=== PATIENT | male | born 1995 ===

== ENCOUNTER 2021-02-10 19:47 | Inpatient (IN) | payer BC, MEDICARE, MEDICAID, SELFPAY ==
[2021-02-10 20:04] VITALS: BP 113/84; PULSE 91; RESP 16; TEMP 37.1; O2SAT 97; BMI 24.9
--- NOTE | 2021-02-10 20:47 | ED.PSYCH ---
HPI - Psych General Chief Complaint: Psychiatric Symptoms <Pao Porter NP - Last Filed: 02/11/21 01:04> Stated Complaint: crisis <Pao Porter NP - Last Filed: 02/11/21 01:04> Source: patient <Pao Porter NP - Last Filed: 02/11/21 01:04> Mode of arrival: ambulatory <Pao Porter NP - Last Filed: 02/11/21 01:04> Limitations: no limitations <Pao Porter NP - Last Filed: 02/11/21 01:04> History of Present Illness HPI Narrative: 25-year-old male presents with suicidal ideations. <Pao Porter NP - Last Filed: 02/11/21 01:04> MD complaint: suicidal ideation and feels depressed <Pao Porter NP - Last Filed: 02/11/21 01:04> Onset (ago): unknown <Pao Porter NP - Last Filed: 02/11/21 01:04> Duration: constant <Pao Porter NP - Last Filed: 02/11/21 01:04> History of same: Yes <Pao Porter NP - Last Filed: 02/11/21 01:04> Relieving factors: none <Pao Porter NP - Last Filed: 02/11/21 01:04> Context: new medication(s) <Pao Porter NP - Last Filed: 02/11/21 01:04> Associated psychiatric symptoms: depression, suicidal ideation, racing thoughts, auditory hallucinations and visual hallucinations <Pao Porter NP - Last Filed: 02/11/21 01:04> Associated symptoms: denies other symptoms <Poa Porter NP - Last Filed: 02/11/21 01:04> Treatments prior to arrival: placed on mental health hold <Pao Porter NP - Last Filed: 02/11/21 01:04> If self harm: admits thoughts of self harm <Pao Porter NP - Last Filed: 02/11/21 01:04> Related Data Allergies/Adverse Reactions: Allergies Allergy/AdvReac Type Severity Reaction Status Date / Time No Known Allergies Allergy Verified 02/10/21 20:10 <Pao Porter NP - Last Filed: 02/11/21 01:04> Review of Systems Review of Systems: Constitutional: No Fever, No Chills ENT/Mouth: No Ear Pain, No Nasal Congestion, No sore throat Eyes: No Eye Pain, No Swelling, No Redness Cardiovascular: No Chest Pain, No SOB Respiratory: No Cough, No Sputum, No Dyspnea Gastrointestinal: No Nausea, No Vomiting, No Diarrhea, No Hematochezia, No Melena Genitourinary: No Dysuria, No Urinary Frequency, No Hematuria Musculoskeletal: No Myalgias Skin: No Skin Lesions, No rash Neuro: No Weakness, No Numbness, No Paresthesias, No Dizziness, No Headache Psych: positive Anxiety, positive Depression, positive SI Heme/Lymph: No Lymphadenopathy Endocrine: No Polyuria, No Polydipsia <ENID Polk Last Filed: 02/11/21 01:04> Yes all other systems are reviewed and are negative <Pao Porter NP - Last Filed: 02/11/21 01:04> [facility] Past Medical History Attestation statement: The following information was validated with the patient. <Pao Porter NP - Last Filed: 02/11/21 01:04> Source: old records reviewed <Pao Porter NP - Last Filed: 02/11/21 01:04> Social History Social History: Social History Advance Directives: No Advance Directives Information Provided: Yes <Pao Porter NP - Last Filed: 02/11/21 01:04> Physical Exam Vital Signs: Vital Signs: Last Vital Signs Temp 98.0 F 02/11/21 00:40 Pulse 94 02/11/21 00:40 Resp 18 02/11/21 00:40 BP 126/86 02/11/21 00:40 Pulse Ox 96 02/11/21 00:40 BMI result Body Mass Index 24.9 <Pao Porter NP - Last Filed: 02/11/21 01:04> Vital Signs: Last Vital Signs Temp 98.0 F 02/11/21 00:40 Pulse 94 02/11/21 00:40 Resp 18 02/11/21 00:40 BP 126/86 02/11/21 00:40 Pulse Ox 96 02/11/21 00:40 BMI result Body Mass Index 24.9 <Hayden Bueno MD - Last Filed: 02/11/21 01:06> Appearance: Alert. Oriented. Moderate psychiatric and emotion distress. Fidgeting. Eyes: Pupils equal, round and reactive to light. Sclera nonicteric ENT: Pharynx normal. Moist mucous membranes. Neck: Normal inspection. Neck supple. CVS: Normal heart rate and rhythm. Pulses normal. Respiratory: No respiratory distress. Breath sounds normal. Abdomen: Soft and nontender. Skin: Skin warm and dry. Normal skin color. Normal skin turgor. Extremities: No lower extremity edema. Gait well-balanced well coordinated. Neuro: No motor deficit. No sensory deficit. Cranial nerves 2-12 intact. <Pao Porter NP - Last Filed: 02/11/21 01:04> Course Course Course Narrative: 25-year-old male presents from home for suicidal ideation. Appears to be having auditory and visual hallucinations, is not answering questions immediately however is answering appropriately. Patient is in constant motion, unable to sit still. Report of new medication started with poor effect. Patient is a section 12 bed search. Physician observation started at this time. 1:03 a.m. patient medically cleared. <Pao Porter NP - Last Filed: 02/11/21 01:04> MDM - Psych Differential Diagnosis Differential diagnosis: Likely acute psychosis, suicidal ideation, depression, drug-induced psychotic disorder, acute anxiety and mood disorder <Pao Porter NP - Last Filed: 02/11/21 01:04> Medical Records Attestation: I reviewed the patient's medical records. <Pao Porter NP - Last Filed: 02/11/21 01:04> Lab Data Attestation: I reviewed the patient's lab results. <ENID Polk Last Filed: 02/11/21 01:04> Result diagrams: : 02/10/21 21:47 02/10/21 21:47 <ENID Polk Last Filed: 02/11/21 01:04> Labs: Lab Results 12/23/21 12/23/21 12/23/21 Range/Units 20:30 21:47 21:47 WBC 8.6 (4.8-10.8) X10*3/uL RBC 5.46 (4.60-5.80) X10*6/uL Hgb 17.1 (14.0-18.0) g/dl Hct 48.3 (42.0-52.0) % MCV 88.5 (80.0-98.0) fL MCH 31.3 (27.0-33.0) pg MCHC 35.4 (31.0-36.0) g/dl RDW 11.6 (11.0-16.0) % Plt Count 289 (160-400) X10*3/uL MPV 9.1 L (9.4-12.4) fL Immature Gran % (Auto) 0.4 (0.0-0.4) % Neut % (Auto) 70.3 (45-73) % Lymph % (Auto) 23.6 (20-40) % [place] % (Auto) 5.5 (2-11) % Eos % (Auto) 0.1 (0-4) % Baso % (Auto) 0.1 (0-2) % Lymph # (Auto) 2.0 (1.2-4.9) X10*3/uL [place] # (Auto) 0.5 (0.1-1.2) X10*3/uL Eos # (Auto) 0.0 (0.0-0.4) X10*3/uL Baso # (Auto) 0.0 (0.0-0.2) X10*3/uL Abs Immat Gran (auto) 0.03 (0.00-0.03) X10*3/uL Absolute Neuts (auto) 6.0 (2.0-8.3) x10*3/uL Absolute Nucleated RBC 0.000 (0.0-0.012) X10*3/uL Nucleated RBC % (auto) 0.0 (0.0-0.2) /100WBC Sodium 142 (135-145) mmol/L Potassium 4.0 (3.3-5.1) mmol/L Chloride 105 (96-108) mmol/L Carbon Dioxide 25 (22-29) mmol/L Anion Gap 16 (12-20) BUN 13 (9-16) mg/dL Creatinine 0.96 (0.5-1.4) mg/dL Estim Creat Clear Calc 118.6 Estimated GFR > 60 Random Glucose 102 (60-115) mg/dL Calcium 10.3 H (8.4-10.2) mg/dL Salicylates < 5.0 L (15-30) mg/dL Acetaminophen < 1 (<30) mcg/mL [place] (0.60-1.20) mmol/L COVID-19 (FILIBERTO) Negative (Negative) COVID-19 Clin Com See Note 02/10/21 Range/Units 21:47 WBC (4.8-10.8) X10*3/uL RBC (4.60-5.80) X10*6/uL Hgb (14.0-18.0) g/dl Hct (42.0-52.0) % MCV (80.0-98.0) fL MCH (27.0-33.0) pg MCHC (31.0-36.0) g/dl RDW (11.0-16.0) % Plt Count (160-400) X10*3/uL MPV (9.4-12.4) fL Immature Gran % (Auto) (0.0-0.4) % Neut % (Auto) (45-73) % Lymph % (Auto) (20-40) % [place] % (Auto) (2-11) % Eos % (Auto) (0-4) % Baso % (Auto) (0-2) % Lymph # (Auto) (1.2-4.9) X10*3/uL [place] # (Auto) (0.1-1.2) X10*3/uL Eos # (Auto) (0.0-0.4) X10*3/uL Baso # (Auto) (0.0-0.2) X10*3/uL Abs Immat Gran (auto) (0.00-0.03) X10*3/uL Absolute Neuts (auto) (2.0-8.3) x10*3/uL Absolute Nucleated RBC (0.0-0.012) X10*3/uL Nucleated RBC % (auto) (0.0-0.2) /100WBC Sodium (135-145) mmol/L Potassium (3.3-5.1) mmol/L Chloride (96-108) mmol/L Carbon Dioxide (22-29) mmol/L Anion Gap (12-20) BUN (9-16) mg/dL Creatinine (0.5-1.4) mg/dL Estim Creat Clear Calc Estimated GFR Random Glucose (60-115) mg/dL Calcium (8.4-10.2) mg/dL Salicylates (15-30) mg/dL Acetaminophen (<30) mcg/mL [place] < 0.10 L (0.60-1.20) mmol/L COVID-19 (FILIBERTO) (Negative) COVID-19 Clin Com <Pao Porter NP - Last Filed: 02/11/21 01:04> Lab Results 02/10/21 02/10/21 02/10/21 Range/Units 20:30 21:47 21:47 WBC 8.6 (4.8-10.8) X10*3/uL RBC 5.46 (4.60-5.80) X10*6/uL Hgb 17.1 (14.0-18.0) g/dl Hct 48.3 (42.0-52.0) % MCV 88.5 (80.0-98.0) fL MCH 31.3 (27.0-33.0) pg MCHC 35.4 (31.0-36.0) g/dl RDW 11.6 (11.0-16.0) % Plt Count 289 (160-400) X10*3/uL MPV 9.1 L (9.4-12.4) fL Immature Gran % (Auto) 0.4 (0.0-0.4) % Neut % (Auto) 70.3 (45-73) % Lymph % (Auto) 23.6 (20-40) % [place] % (Auto) 5.5 (2-11) % Eos % (Auto) 0.1 (0-4) % Baso % (Auto) 0.1 (0-2) % Lymph # (Auto) 2.0 (1.2-4.9) X10*3/uL [place] # (Auto) 0.5 (0.1-1.2) X10*3/uL Eos # (Auto) 0.0 (0.0-0.4) X10*3/uL Baso # (Auto) 0.0 (0.0-0.2) X10*3/uL Abs Immat Gran (auto) 0.03 (0.00-0.03) X10*3/uL Absolute Neuts (auto) 6.0 (2.0-8.3) x10*3/uL Absolute Nucleated RBC 0.000 (0.0-0.012) X10*3/uL Nucleated RBC % (auto) 0.0 (0.0-0.2) /100WBC Sodium 142 (135-145) mmol/L Potassium 4.0 (3.3-5.1) mmol/L Chloride 105 (96-108) mmol/L Carbon Dioxide 25 (22-29) mmol/L Anion Gap 16 (12-20) BUN 13 (9-16) mg/dL Creatinine 0.96 (0.5-1.4) mg/dL Estim Creat Clear Calc 118.6 Estimated GFR > 60 Random Glucose 102 (60-115) mg/dL Calcium 10.3 H (8.4-10.2) mg/dL Salicylates < 5.0 L (15-30) mg/dL Acetaminophen < 1 (<30) mcg/mL [place] (0.60-1.20) mmol/L COVID-19 (FILIBERTO) Negative (Negative) COVID-19 Clin Com See Note 02/10/21 Range/Units 21:47 WBC (4.8-10.8) X10*3/uL RBC (4.60-5.80) X10*6/uL Hgb (14.0-18.0) g/dl Hct (42.0-52.0) % MCV (80.0-98.0) fL MCH (27.0-33.0) pg MCHC (31.0-36.0) g/dl RDW (11.0-16.0) % Plt Count (160-400) X10*3/uL MPV (9.4-12.4) fL Immature Gran % (Auto) (0.0-0.4) % Neut % (Auto) (45-73) % Lymph % (Auto) (20-40) % [place] % (Auto) (2-11) % Eos % (Auto) (0-4) % Baso % (Auto) (0-2) % Lymph # (Auto) (1.2-4.9) X10*3/uL [place] # (Auto) (0.1-1.2) X10*3/uL Eos # (Auto) (0.0-0.4) X10*3/uL Baso # (Auto) (0.0-0.2) X10*3/uL Abs Immat Gran (auto) (0.00-0.03) X10*3/uL Absolute Neuts (auto) (2.0-8.3) x10*3/uL Absolute Nucleated RBC (0.0-0.012) X10*3/uL Nucleated RBC % (auto) (0.0-0.2) /100WBC Sodium (135-145) mmol/L Potassium (3.3-5.1) mmol/L Chloride (96-108) mmol/L Carbon Dioxide (22-29) mmol/L Anion Gap (12-20) BUN (9-16) mg/dL Creatinine (0.5-1.4) mg/dL Estim Creat Clear Calc Estimated GFR Random Glucose (60-115) mg/dL Calcium (8.4-10.2) mg/dL Salicylates (15-30) mg/dL Acetaminophen (<30) mcg/mL [place] < 0.10 L (0.60-1.20) mmol/L COVID-19 (FILIBERTO) (Negative) COVID-19 Clin Com <Hayden Bueno MD - Last Filed: 02/11/21 01:06> Discharge Plan Discharge Clinical Impression: Acute psychosis <Pao Porter NP - Last Filed: 02/11/21 01:04>
[2021-02-10 21:10] LABS: COVID-19 Test Negative (Negative)
[2021-02-10 21:51] LABS: MANUAL DIFF FLAG NO
[2021-02-10 21:52] LABS: Basophils Percent Auto 0.1 % (0-2); Eosinophils Percent Auto 0.1 % (0-4); Hematocrit 48.3 % (42.0-52.0); Hemoglobin 17.1 g/dl (14.0-18.0); Imm Gran Abs Auto 0.03 X10*3/uL (0.00-0.03); Imm Gran Pct Auto 0.4 % (0.0-0.4); Lymphocytes Percent Auto 23.6 % (20-40); Mean Corpuscular HGB Conc 35.4 g/dl (31.0-36.0); Mean Corpuscular Hemoglobin 31.3 pg (27.0-33.0); Mean Corpuscular Volume 88.5 fL (80.0-98.0); Mean Platelet Volume 9.1 fL (9.4-12.4); Monocytes Absolute Auto 0.5 X10*3/uL (0.1-1.2); Monocytes Percent Auto 5.5 % (2-11); Neutrophils Percent Auto 70.3 % (45-73); Platelet Count 289 X10*3/uL (160-400); Red Blood Count 5.46 X10*6/uL (4.60-5.80); Red Cell Distribution Width 11.6 % (11.0-16.0); White Blood Count 8.6 X10*3/uL (4.8-10.8)
[2021-02-10 22:13] LABS: Anion Gap 16 (12-20); Blood Urea Nitrogen 13 mg/dL (9-16); Calcium 10.3 mg/dL (8.4-10.2); Carbon Dioxide 25 mmol/L (22-29); Chloride 105 mmol/L (96-108); Creatinine Clr Calc Pharmacy 118.6; Estimated Glomerular Filt Rate > 60; Glucose Random 102 mg/dL (60-115); Salicylate < 5.0 mg/dL (15-30); Sodium 142 mmol/L (135-145)
[2021-02-10 23:40] LABS: Lithium < 0.10 mmol/L (0.60-1.20)
[2021-02-10 23:45] LABS: Acetaminophen LAB < 1 mcg/mL (<30)
--- NOTE | 2021-02-11 00:21 | MHC.CARE ---
Pt was evaluated in the community by [facility]. Pt is an inpatient bedsearch at this [facility].
[2021-02-11 00:40] VITALS: BP 126/86; PULSE 94; RESP 18; TEMP 36.7; O2SAT 96
--- NOTE | 2021-02-11 05:41 | PC.NURSE ---
Patient did not sleep at all since he came, endorses auditory hallucination but reported he will not take any medication at this point of time, patient had 4 inpatient psych hospitalization, behavior non concerning, mood depressed, affect flat, hypo-verbal, patient was assessed by [facility], disposition section 12 inpatient bed search, care team coordinating admission here at [facility], [facility] rec not done because patient is currently not taking his medication, psych consult was ordered to review patient's medication and patient's father wanted to have our psychiatrist call Dr. Arias (who is patient's psychiatrist) at [phone] for consultation before starting any medication to the patient, VSS, will continue to monitor.
[2021-02-11 07:27] VITALS: RESP 16
--- NOTE | 2021-02-11 08:28 | PC.NURSE ---
pt is a/o, no sob/veronique noted, pt is lying supine in bed appears slightly anxious (shaking rossy legs) but is refusing any prn med at this time. pt refused breakfast.
[2021-02-11 08:33] VITALS: BP 126/78; PULSE 95; RESP 14; TEMP 36.9; O2SAT 98
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
--- NOTE | 2021-02-11 10:06 | ECG_ITS ---
Test Reason : MEDICAL CLEARANCE Blood Pressure : / mmHG Vent. Rate : 083 BPM Atrial Rate : 083 BPM P-R Int : 148 ms QRS Dur : 092 ms QT Int : 372 ms P-R-T Axes : 099 081 193 degrees QTc Int : 437 ms Normal sinus rhythm Nonspecific T wave changes Abnormal ECG No previous ECGs available Referred By: Karina Moses Electronically Signed By:Marlon Hinojosa
--- NOTE | 2021-02-11 10:17 | PC.NURSE ---
rn to rn report given to ezequiel estrada aware of plan of care to go inpatient.
--- NOTE | 2021-02-11 11:00 | PC.NURSE ---
pt and his belongings brought to via w/c with sean (rn) and la nena ().
--- NOTE | 2021-02-11 14:22 | PC.ADMIT ---
Pt is a 25 year who presents to M5 from [facility] ED at approx 1200 on a cv status. Pt is covid -. Pt refused to do a tox screen. Pt reported that he has not been taking meds. Pt had an intense gaze during his admit and had brief moments of self dialoguing. Pt reported that he had auditory hallucinations of both male and female who tell him to kill himself . Pt denies SI/HI/Pain. Per chart review, Pt was seen in the crisis office after his mother brought him in due to significant concerns about his safety due to his endorsing SI and being non-verbal. Pt decompensating and attempting self-harm with a butter knife and art supplies. Provider notified of orders called about admissions. start treatment plan and monitor for safety.
[2021-02-11 17:04] VITALS: BP 127/77; PULSE 97; TEMP 37
[2021-02-12] MEDS: hydrOXYzine HCL 25 MG TABLET PO (01:28)
[2021-02-12] MEDS: OLANZapine 10 MG TABLET PO (01:29)
[2021-02-12] MEDS: Haloperidol Lactate 5 MG/ML VIAL IM (02:16)
[2021-02-12] MEDS: LORazepam 2 MG/ML VIAL IM (02:16)
--- NOTE | 2021-02-12 02:21 | PC.NURSE ---
Patient in distress pacing in the hallway; depressed, flat affect. Approaching staff stating I want to , Patient able to stay engaged with staff and talk. Patient delayed in responses appearing to be distracted my internal stimuli. Patient asking staff will you please kill me.... I will do anything to . Patient initially refusing any offers of medication, stating they will keep me alive and I want to . After lengthy calm engagement patient open to taking medication; reluctant to taking oral medications, I can't do it, I cant do it , would hold the meds in his hand but talk himself out of taking them. Discussed having an injection and patient openly willing for an injection. Patient pacing the land using icebags while waiting for IM orders banquet server on call Psychiatric Provider notified, while waiting orders patient paced the halls holding ice bags; Took oral meds yet remained in distress and provider aware. banquet server on call Psychiatric Provider ordered a one time dose of IM Haldol 5mg and IM Ativan 2mg. Patient cooperative and willing for medication injection, calmly sat in chair and allowed RN to administer injection to deltoids. Patient currently sitting in rocking chair in hallway, dozing off.
[2021-02-12 06:00] VITALS: BP 118/63; PULSE 101; TEMP 36.7; O2SAT 99
--- NOTE | 2021-02-12 16:58 | HO.PSYCHPN ---
Subjective Subjective Date of Service: 02/13/21 Reason For Visit: depression, SI Interim History: Patient seen and discussed with team. Per staff, pt initially refused PO zyprexa, then required chemical restraint and was administered IM haldol and ativan with good effect and took PO zyprexa. Patient evaluated this morning and upon interview pt is found lying down in bed. Says he is sleepy and his mood is not good. Attributes this to his life being terrible. Pt reports he did not want to take zyprexa last night because I feel like I abused myself by taking the medication. Says he was able to sleep last night after receiving zyprexa PO, haldol, and ativan. Says he is still hearing voices to kill myself and endorses SI with a plan to starve himself. Per staff, he had a salad yesterday. Says he feels safe here. Medication Compliance: Intermittent Side effects from medications: No Attending Groups: No Review of Systems Acute medical concerns: No Medical Review of Systems: unchanged Mental Status Exam Mental Status Exam Narrative: Pt is alert and oriented but has poor insight into psychotic sx. Pt is unkempt but not malodorous, in casual attire, normal body habitus, lying down in bed. Poor eye contact, inattentive. No Tics or Tremors. No abnormal involuntary movements. Pt is calm but suspicious. Non-pressured speech, non-spontaneous with notable prolonged speech latency, no dysarthria. Mood is ?bad,? affect is constricted. Endorses SI with plan to restrict his appetite, denies SIB. Denies HI upon inquiry. Endorses A/VH and jain preoccupation, paranoid delusional thought content. Appears to have thought blocking, bizarre content. No known cognitive or memory impairment. Insight/ Judgment poor. Diagnostics Vital Signs (24Hr): Vital Signs - 24 hr 02/12/21 17:46 02/13/21 06:00 Temperature 98.6 F 98.0 F Pulse Rate 95 100 Respiratory Rate 16 Blood Pressure 120/71 149/72 H Pulse Oximetry 98 BMI result Body Mass Index 24.9 Labs Results: 02/10/21 21:47 02/10/21 21:47 Medications Medications Current Medications Acetaminophen (Acetaminophen 325 Mg Tablet) 650 mg PO Q6H PRN PRN Reason: Headache/Pain Mild Scale (1-3) Al Hydroxide/Mg Hydroxide (Magnesium Hydrox/Alum Hydrox 30 Ml Oral.Susp) 30 ml PO Q6H PRN PRN Reason: Heartburn/Nausea Benztropine Mesylate (Benztropine Mesylate 0.5 Mg Tablet) 0.5 mg PO BID [facility] Last Admin: 02/13/21 09:55 Dose: Not Given Documented by: Hydroxyzine HCl (Hydroxyzine Hcl 25 Mg Tablet) 25 mg PO Q6H PRN PRN Reason: Anxiety Last Admin: 02/12/21 01:28 Dose: 25 mg Documented by: Magnesium Hydroxide (Milk Of Magnesia 30 Ml Oral.Susp) 30 ml PO DAILY PRN PRN Reason: Constipation Olanzapine (Olanzapine 10 Mg Tablet) 10 mg PO BEDTIME [facility] Last Admin: 02/12/21 21:12 Dose: Not Given Documented by: Trazodone HCl (Trazodone Hcl 50 Mg Tablet) 50 mg PO BEDTIME PRN PRN Reason: Insomnia Allergies Allergies Allergy/AdvReac Type Severity Reaction Status Date / Time No Known Allergies Allergy Verified 02/10/21 20:10 Assessment & Plan Assessment & Plan (1) Cannabis abuse with psychotic disorder: Status: Acute Code(s): F12.159 - Cannabis abuse with psychotic disorder, unspecified (2) Schizoaffective disorder, bipolar type: Status: Acute Code(s): F25.0 - Schizoaffective disorder, bipolar type Assessment and Plan: Pt is a 25 y.o. male who carries a dx of schizoaffective disorder, cannabis use disorder. He presents with sx of A/VH, delusional thought content, SI but unable to articulate a plan, poor sleep, poor appetite, and decompensation in self care. Pt has been non-adherent with meds x 1 mo, recent discharge from [facility] and had been started on latuda and lithium. Pt reports stopping meds due to side effects. He is ambivalent about starting medication but is willing to trial zyprexa. Pt has long hx of impulsive behaviors, agitation, and mood lability. Will start zyprexa 10 mg QHS to target psychotic sx. Pt's father insists pt has had sensitivity and adverse responses to past med trials. 02/12: Med adherence is encouraged for pt, will continue trial on zyprexa 10 mg QHS. Encouraged pt to eat and not restrict and to ambulate and take fresh air break, shower. Monitor response to medications. Monitor for safety in the milieu. Discharge on stabilization. Patient seen. Chart reviewed. Discussed with team. Obtain collateral contact info?as needed I spent minutes with the patient and/or on the patient floor today, greater than?50% of which was spent counseling/coordinating care. Reason for contiued inpatient stay Substantial Risk for: harm to self, inability to function, rapid decompensation and med/psych decompensation
[2021-02-12 17:46] VITALS: BP 120/71; PULSE 95; TEMP 37
[2021-02-13 06:00] VITALS: BP 149/72; PULSE 100; RESP 16; TEMP 36.7; O2SAT 98
--- NOTE | 2021-02-13 17:57 | P.PNPSI_ITS ---
Subjective Subjective Date of Service: 02/13/21 Reason For Visit: depression, SI Interim History: Patient seen and discussed with team. Patient evaluated this morning and upon interview he reports he took zyprexa last night after initially refusing it but noticed jaw distention this morn ing. He then declined cogentin and tylenol. He is more visible today, pacing the halls. Says I dont like medication, all medication at this point gives me a very bad side effect and says zyprexa makes my brain fuzzy. Continues to endorse AH, hears a big voice in my head to kill myself, says he was trying to starve myself but he did eat today. Feels safe here. Voices are really bad still and driving me to kill myself. However, pt is utilizing music to help quiet the voices and his dad will drop off headphones. Medication Compliance: Yes Side effects from medications: No Attending Groups: Intermittent Review of Systems Acute medical concerns: No Medical Review of Systems: unchanged Mental Status Exam Mental Status Exam Narrative: Pt is alert and oriented but has poor insight into psychotic sx. Pt is unkempt but not malodorous, in casual attire, normal body habitus, ambulating more today and able to meet in interview room. Good eye contact, more attentive. No Tics or Tremors. No abnormal involuntary movements. Pt is calm but susp icious. Non-pressured speech, non-spontaneous with notable prolonged speech latency, no dysarthria. Mood is ?bad,? affect is less constricted, calmer today. Currently denies SI, denies SIB. Denies HI upon inquiry. Endorses command AH/VH and nondenominational preoccupation, paranoid delusional thought content. Appears to have thought blocking, bizarre content. No known cognitive or memory impairment. Insight/ Judgment poor. Diagnostics Vital Signs (24Hr): Vital Signs - 24 hr 02/13/21 18:00 Temperature 98.8 F Pulse Rate 80 Blood Pressure 120/80 BMI result Body Mass Index 24.9 Labs Results: 02/10/21 21:47 02/10/21 21:47 Labs: Laboratory Results - last 48 hr 02/14/21 02/14/21 07:56 07:56 Estimat Average Glucose 94 Hemoglobin A1c % 4.9 Total Bilirubin 0.5 Direct Bilirubin 0.3 AST 15 ALT 13 Alkaline Phosphatase 102 Total Protein 6.9 Albumin 4.3 Triglycerides 54 Cholesterol 118 LDL Cholesterol, Calc 80 HDL Cholesterol 28 Medications Medications Current Medications Acetaminophen (Acetaminophen 325 Mg Tablet) 650 mg PO Q6H PRN PRN Reason: Headache/Pain Mild Scale (1-3) Al Hydroxide/Mg Hydroxide (Magnesium Hydrox/Alum Hydrox 30 Ml Oral.Susp) 30 ml PO Q6H PRN PRN Reason: Heartburn/Nausea Benztropine Mesylate (Benztropine Mesylate 0.5 Mg Tablet) 0.5 mg PO BID [facility] Last Admin: 02/14/21 07:46 Dose: Not Given Documented by: Hydroxyzine HCl (Hydroxyzine Hcl 25 Mg Tablet) 25 mg PO Q6H PRN PRN Reason: Anxiety Last Admin: 02/12/21 01:28 Dose: 25 mg Documented by: Magnesium Hydroxide (Milk Of Magnesia 30 Ml Oral.Susp) 30 ml PO DAILY PRN PRN Reason: Constipation Olanzapine (Olanzapine 10 Mg Tablet) 10 mg PO BEDTIME [facility] Last Admin: 02/13/21 20:16 Dose: Not Given Documented by: Trazodone HCl (Trazodone Hcl 50 Mg Tablet) 50 mg PO BEDTIME PRN PRN Reason: Insomnia Allergies Allergies Allergy/AdvReac Type Severity Reaction Status Date / Time No Known Allergies Allergy Verified 02/10/21 20:10 Assessment & Plan Assessment & Plan (1) Cannabis abuse with psychotic disorder: Status: Acute Code(s): F12.159 - Cannabis abuse with psychotic disorder, unspecified (2) Schizoaffective disorder, bipolar type: Status: Acute Code(s): F25.0 - Schizoaffective disorder, bipolar type Assessment and Plan: Pt is a 25 y.o. male who carries a dx of schizoaffective disorder, cannabis use disorder. He presents with sx of A/VH, delusional thought content, SI but unable to articulate a plan, poor sleep, poor appetite, and decompensation in self care. Pt has been non-adherent with meds x 1 mo, recent discharge from [facility] and had been started on latuda and lithium. Pt reports stopping meds due to side effects. He is ambivalent about starting medication but is willing to trial zypr exa. Pt has long hx of impulsive behaviors, agitation, and mood lability. Will start zyprexa 10 mg QHS to target psychotic sx. Pt's father insists pt has had sensitivity and adverse responses to past med trials. 02/12: Med adherence is encouraged for pt, will continue trial on zyprexa 10 mg QHS. Encouraged pt to eat and not restrict and to ambulate and take fresh air break, shower. 02/13: Will encourage med adherence and start cogentin 0.5 mg BID for EPS prevention. Monitor response to medications. Monitor for safety in the milieu. Discharge on stabilization. Patient seen. Chart reviewed. Discussed with team. Obtain collateral contact info?as needed I spent minutes with the patient and/or on the patient floor today, greater than?50% of which was spent counseling/coordinating care. Reason for contiued inpatient stay Substantial Risk for: harm to self, rapid decompensation and med/psych decompensation
[2021-02-13 18:00] VITALS: BP 120/80; PULSE 80; TEMP 37.1
[2021-02-14 08:56] LABS: Alanine Aminotransferase 13 U/L (0-40); Albumin Level 4.3 g/dL (3.5-5.0); Alkaline Phosphatase 102 U/L (39-117); Aspartate Amino Transferase 15 U/L (5-37); Bilirubin Direct 0.3 mg/dL (0.0-0.5); Bilirubin Total 0.5 mg/dL (0.0-1.0); Cholesterol 118 mg/dL; HDL Cholesterol 28 mg/dL; LDL Cholesterol Calculated 80 mg/dl; Total Protein 6.9 g/dL (6.5-8.0); Triglycerides 54 mg/dL
[2021-02-14 09:05] LABS: Estimated Average Glucose 94 mg/dL; Hemoglobin A1C 120.7836 umol/L; Hemoglobin A1c % 4.9 %
--- NOTE | 2021-02-14 09:38 | P.PNPSI_ITS ---
Subjective Subjective Date of Service: 02/14/21 Reason For Visit: depression, SI Subjective Notes: Conditional Voluntary Interim History: Pt reports he was suicidal prior to coming due to worries about his after life. Pt explained that he hears voices, multiple voices one of them he belives may be God's voice. Pt reports God telling him to not eat and sacrifice himself. Pt reports his goal is to make sure he goes to [facility] because if he doesn't he will experience significant pain to his soul. Pt continues to hear voices. He does think that he has a mental illness and yet does think he is hearing God's voice. Pt declines medications naming several side effects. He can't explain if God tells him to hurt himself why he wouldn't as he firmly believes that he has to follow what this voice is telling him. Pt reports sleeping ad eating well. Pt intermittently visible in the unit. Medication Compliance: No Review of Systems Review of Systems CVS: No c/o chest pain, palpitations, no SOB [employer]: No c/o dizziness, headache GI: No c/o Nausea, Vomiting, diarrhea, constipation or heartburn Yes all other systems are reviewed and are negative Mental Status Exam Mental Status Exam Narrative: Pt is alert and oriented but has poor insight into psychotic sx. Pt is unkempt but not malodorous, in casual attire, normal body habitus, ambulating more today and able to meet in interview room. Good eye contact, more attentive. No Tics or Tremors. No abnormal involuntary movements. Pt is calm but suspicious. Non-pressured speech, non-spontaneous with notable prolonged speech latency, no dysarthria. Mood is ?better,? affect is brightens at times. Currently denies SI, denies SIB. Denies HI upon inquiry. continues to endorse command AH/VH and worship preoccupation, paranoid delusional thought content. Appears to have thought blocking, bizarre content. Cognitive/memory problems secondary to psychiatric symptoms. Insight/ Judgment poor. Diagnostics Vital Signs (24Hr): Vital Signs - 24 hr 02/14/21 18:00 02/15/21 06:00 Temperature 98.8 F 98.0 F Pulse Rate 102 H 61 Respiratory Rate 18 Blood Pressure 130/79 111/61 Pulse Oximetry 98 BMI result Body Mass Index 24.9 Labs Results: 02/10/21 21:47 02/10/21 21:47 Labs: Laboratory Results - last 48 hr 02/14/21 02/14/21 07:56 07:56 Estimat Average Glucose 94 Hemoglobin A1c % 4.9 Total Bilirubin 0.5 Direct Bilirubin 0.3 AST 15 ALT 13 Alkaline Phosphatase 102 Total Protein 6.9 Albumin 4.3 Triglycerides 54 Cholesterol 118 LDL Cholesterol, Calc 80 HDL Cholesterol 28 Medications Medications Current Medications Acetaminophen (Acetaminophen 325 Mg Tablet) 650 mg PO Q6H PRN PRN Reason: Headache/Pain Mild Scale (1-3) Al Hydroxide/Mg Hydroxide (Magnesium Hydrox/Alum Hydrox 30 Ml Oral.Susp) 30 ml PO Q6H PRN PRN Reason: Heartburn/Nausea Benztropine Mesylate (Benztropine Mesylate 0.5 Mg Tablet) 0.5 mg PO BID [facility] Last Admin: 02/15/21 09:19 Dose: Not Given Documented by: Hydroxyzine HCl (Hydroxyzine Hcl 25 Mg Tablet) 25 mg PO Q6H PRN PRN Reason: Anxiety Last Admin: 02/12/21 01:28 Dose: 25 mg Documented by: Magnesium Hydroxide (Milk Of Magnesia 30 Ml Oral.Susp) 30 ml PO DAILY PRN PRN Reason: Constipation Olanzapine (Olanzapine 10 Mg Tablet) 10 mg PO BEDTIME [facility] Last Admin: 02/14/21 23:50 Dose: 10 mg Documented by: Trazodone HCl (Trazodone Hcl 50 Mg Tablet) 50 mg PO BEDTIME PRN PRN Reason: Insomnia Allergies Allergies Allergy/AdvReac Type Severity Reaction Status Date / Time No Known Allergies Allergy Verified 02/10/21 20:10 Assessment & Plan Assessment & Plan (1) Cannabis abuse with psychotic disorder: Status: Acute Code(s): F12.159 - Cannabis abuse with psychotic disorder, unspecified (2) Schizoaffective disorder, bipolar type: Status: Acute Code(s): F25.0 - Schizoaffective disorder, bipolar type Assessment and Plan: Pt is a 25 y.o. male who carries a dx of schizoaffective disorder, cannabis use disorder. He presents with sx of A/VH, delusional thought content, SI but unable to articulate a plan, poor sleep, poor appetite, and decompensation in self care. Pt has been non-adherent with meds x 1 mo, recent discharge from [facility] and had been started on latuda and lithium. Pt reports stopping meds due to side effects. He is ambivalent about starting medication but is willing to trial zyprexa. Pt has long hx of impulsive behaviors, agitation, and mood lability. Will start zyprexa 10 mg QHS to target psychotic sx. Pt's father insists pt has had sensitivity and adverse responses to past med trials. 02/12: Med adherence is encouraged for pt, will continue trial on zyprexa 10 mg QHS. Encouraged pt to eat and not restrict and to ambulate and take fresh air break, shower. 02/13: Will encourage med adherence and start cogentin 0.5 mg BID for EPS prev ention. Monitor response to medications. Monitor for safety in the milieu. Discharge on stabilization. Patient seen. Chart reviewed. Discussed with team. Obtain collateral contact info?as needed I spent minutes with the patient and/or on the patient floor today, gre ater than?50% of which was spent counseling/coordinating care. Reason for contiued inpatient stay Substantial Risk for: inability to function
[2021-02-14 18:00] VITALS: BP 130/79; PULSE 102; TEMP 37.1
[2021-02-14] MEDS: OLANZapine 10 MG TABLET PO (23:50)
[2021-02-15 06:00] VITALS: BP 111/61; PULSE 61; RESP 18; TEMP 36.7; O2SAT 98
--- NOTE | 2021-02-15 12:21 | P.PNPSI_ITS ---
Subjective Subjective Date of Service: 02/15/21 Reason For Visit: depression, SI Subjective Notes: Conditional Voluntary Interim History: Pt reports hearing voices telling him to hurt himself. He reports he belives it is God's voice. He denies any plan or intent but does not quesiton validity of voices. Pt reports fair sleep. He endorses feeling worried, depressed anxious due to content of AH, and delusional thinking. Per nursing, pt has been mostly in his room minimally interactive with peers. Medication Compliance: Yes Side effects from medications: No Attending Groups: No Review of Systems Review of Systems Yes all other systems are reviewed and are negative Mental Status Exam Mental Status Exam Narrative: Pt is alert and oriented but has poor insight into psychotic sx. Pt is unkempt but not malodorous, in casual attire, normal body habitus, ambulating more today and able to meet in interview room. Good eye contact, more attentive. No Tics or Tremors. No abnormal involuntary movements. Pt is calm but suspicious. Non-pressured speech, non-spontaneous with notable prolonged speech latency, no dysarthria. Mood is ?depressed,? affect constricted. Currently denies SI, denies SIB. Denies HI upon inquiry. continues to endorse command AH/VH and caodaism preoccupation, paranoid delusional thought content. Appears to have thought blocking, bizarre content. Cognitive/memory problems secondary to psychiatric symptoms. Insight/ Judgment poor. Diagnostics Vital Signs (24Hr): Vital Signs - 24 hr 02/16/21 18:00 02/17/21 06:00 Temperature 98.2 F 98.1 F Pulse Rate 67 80 Respiratory Rate 18 18 Blood Pressure 132/71 114/59 L Pulse Oximetry 96 97 BMI result Body Mass Index 24.9 Labs Results: 02/10/21 21:47 02/10/21 21:47 Medications Medications Current Medications Acetaminophen (Acetaminophen 325 Mg Tablet) 650 mg PO Q6H PRN PRN Reason: Headache/Pain Mild Scale (1-3) Last Admin: 02/15/21 19:09 Dose: 650 mg Documented by: Al Hydroxide/Mg Hydroxide (Magnesium Hydrox/Alum Hydrox 30 Ml Oral.Susp) 30 ml PO Q6H PRN PRN Reason: Heartburn/Nausea Benztropine Mesylate (Benztropine Mesylate 1 Mg Tablet) 1 mg PO Q8H PRN PRN Reason: EPS/dystonia Hydroxyzine HCl (Hydroxyzine Hcl 25 Mg Tablet) 25 mg PO Q6H PRN PRN Reason: Anxiety Last Admin: 02/16/21 18:30 Dose: 25 mg Documented by: Lorazepam (Lorazepam 1 Mg Tablet) 1 mg PO Q4H PRN PRN Reason: Anxiety Last Admin: 02/16/21 19:26 Dose: 1 mg Documented by: Magnesium Hydroxide (Milk Of Magnesia 30 Ml Oral.Susp) 30 ml PO DAILY PRN PRN Reason: Constipation Olanzapine (Olanzapine Odt 10 Mg Tab.Rapdis) 10 mg TRANSLINGU BID [facility] Last Admin: 02/17/21 08:55 Dose: 10 mg Documented by: Trazodone HCl (Trazodone Hcl 50 Mg Tablet) 50 mg PO BEDTIME PRN PRN Reason: Insomnia Allergies Allergies Allergy/AdvReac Type Severity Reaction Status Date / Time No Known Allergies Allergy Verified 02/10/21 20:10 Assessment & Plan Assessment & Plan (1) Schizoaffective disorder, bipolar type: Status: Acute Code(s): F25.0 - Schizoaffective disorder, bipolar type Assessment and Plan: Pt is a 25 y.o. male who carries a dx of schizoaffective disorder, cannabis use disorder. He presents with sx of A/VH, delusional thought content, SI but unable to articulate a plan, poor sleep, poor appetite, and decompensation in self care. Pt has been non-adherent with meds x 1 mo, recent discharge from [facility] and had been started on latuda and lithium. Pt reports stopping meds due to side effects. He is ambivalent about starting medication but is willing to trial zyprexa. Pt has long hx of impulsive behaviors, agitation, and mood lability. Will start zyprexa 10 mg QHS to target psychotic sx. Pt's father insists pt has had sensitivity and adverse responses to past med trials. 02/15- increase olanzapine to 10mg po BID Monitor response to medications. Monitor for safety in the milieu. Discharge on stabilization. Patient seen. Chart reviewed. Discussed with team. Obtain collateral contact info?as needed I spent minutes with the patient and/or on the patient floor today, greater than?50% of which was spent counseling/coordinating care. Reason for contiued inpatient stay Substantial Risk for: harm to self and inability to function
[2021-02-15] MEDS: OLANZapine ODT 10 MG TAB.RAPDIS TRANSLINGU ×2 (13:16→22:16)
--- NOTE | 2021-02-15 13:49 | PC.NURSE ---
Late entry: Patient reporting significant anxiety, AH- is only willing to take zyprexa, declined cogentin. Reviewed patient presentation with provider, Neeta. Patient medicated as ordered.
[2021-02-15 18:00] VITALS: BP 141/49; PULSE 95; TEMP 36.3; O2SAT 97
[2021-02-15] MEDS: Acetaminophen 325 MG TABLET 650 MG PO (19:09)
[2021-02-16 06:00] VITALS: BP 118/56; PULSE 79; RESP 18; TEMP 36.6; O2SAT 98
[2021-02-16] MEDS: OLANZapine ODT 10 MG TAB.RAPDIS TRANSLINGU ×2 (09:10→20:08)
--- NOTE | 2021-02-16 12:24 | P.PNPSI_ITS ---
Subjective Subjective Date of Service: 02/15/21 Reason For Visit: depression, SI Subjective Notes: Conditional Voluntary Interim History: Pt continues to report that voices are telling him to hurt himself. He reports feeling overwhelmed, he denies any plan or intent to harm self but believes his david is to . Pt also talks about after life and his soul being tortured after. Pt endorses depressed mood, anxious mood. Per nursing, pt mostly in his room, minimally interactive with peers. Medication Compliance: Yes Side effects from medications: No Attending Groups: No Review of Systems Review of Systems Yes all other systems are reviewed and are negative Mental Status Exam Mental Status Exam Narrative: Pt is alert and oriented but has poor insight into psychotic sx. Pt is unkempt but not malodorous, in casual attire, normal body habitus, ambulating more today and able to meet in interview room. Good eye contact, more attentive. No Tics or Tremors. No abnormal involuntary movements. Pt is calm but suspicious. Non-pressured speech, non-spontaneous with notable prolonged speech latency, no dysarthria. Mood is ?depressed,? affect constricted. Currently denies SI, denies SIB. Denies HI upon inquiry. continues to endorse command AH/VH and episcopalian preoccupation, paranoid delusional thought content. Appears to have thought blocking, bizarre content. Cognitive/memory problems secondary to psychiatric symptoms. Insight/ Judgment poor. Diagnostics Vital Signs (24Hr): Vital Signs - 24 hr 02/16/21 18:00 02/17/21 06:00 Temperature 98.2 F 98.1 F Pulse Rate 67 80 Respiratory Rate 18 18 Blood Pressure 132/71 114/59 L Pulse Oximetry 96 97 BMI result Body Mass Index 24.9 Labs Results: 02/10/21 21:47 02/10/21 21:47 Medications Medications Current Medications Acetaminophen (Acetaminophen 325 Mg Tablet) 650 mg PO Q6H PRN PRN Reason: Headache/Pain Mild Scale (1-3) Last Admin: 02/15/21 19:09 Dose: 650 mg Documented by: Al Hydroxide/Mg Hydroxide (Magnesium Hydrox/Alum Hydrox 30 Ml Oral.Susp) 30 ml PO Q6H PRN PRN Reason: Heartburn/Nausea Benztropine Mesylate (Benztropine Mesylate 1 Mg Tablet) 1 mg PO Q8H PRN PRN Reason: EPS/dystonia Hydroxyzine HCl (Hydroxyzine Hcl 25 Mg Tablet) 25 mg PO Q6H PRN PRN Reason: Anxiety Last Admin: 02/16/21 18:30 Dose: 25 mg Documented by: Lorazepam (Lorazepam 1 Mg Tablet) 1 mg PO Q4H PRN PRN Reason: Anxiety Last Admin: 02/16/21 19:26 Dose: 1 mg Documented by: Magnesium Hydroxide (Milk Of Magnesia 30 Ml Oral.Susp) 30 ml PO DAILY PRN PRN Reason: Constipation Olanzapine (Olanzapine Odt 10 Mg Tab.Rapdis) 10 mg TRANSLINGU BID TABITHA Last Admin: 02/17/21 08:55 Dose: 10 mg Documented by: Trazodone HCl (Trazodone Hcl 50 Mg Tablet) 50 mg PO BEDTIME PRN PRN Reason: Insomnia Allergies Allergies Allergy/AdvReac Type Severity Reaction Status Date / Time No Known Allergies Allergy Verified 02/10/21 20:10 Assessment & Plan Assessment & Plan (1) Schizoaffective disorder, bipolar type: Status: Acute Code(s): F25.0 - Schizoaffective disorder, bipolar type Assessment and Plan: Pt is a 25 y.o. male who carries a dx of schizoaffective disorder, cannabis use disorder. He presents with sx of A/VH, delusional thought content, SI but unable to articulate a plan, poor sleep, poor appetite, and decompensation in self care. Pt has been non-adherent with meds x 1 mo, recent discharge from [facility] and had been started on latuda and lithium. Pt reports stopping meds due to side effects. He is ambivalent about starting medication but is willing to trial zyprexa. Pt has long hx of impulsive behaviors, agitation, and mood lability. Will start zyprexa 10 mg QHS to target psychotic sx. Pt's father insists pt has had sensitivity and adverse responses to past med trials. 02/15- increase olanzapine to 10mg po BID 02/16- continue olanzapine 10mg po BID. pt continues with CAH, to starve self to as his david. thinks he hears God's voice. denies any plan or intent to hurt self. Monitor response to medications. Monitor for safety in the milieu. Discharge on stabilization. Patient seen. Chart reviewed. Discussed with team. Obtain collateral contact info?as needed I spent minutes with the patient and/or on the patient floor today, greater than?50% of which was spent counseling/coordinating care. Reason for contiued inpatient stay Substantial Risk for: harm to self and inability to function
[2021-02-16 18:00] VITALS: BP 132/71; PULSE 67; RESP 18; TEMP 36.8; O2SAT 96
[2021-02-16] MEDS: hydrOXYzine HCL 25 MG TABLET PO (18:30)
[2021-02-16] MEDS: LORazepam 1 MG TABLET PO (19:26)
[2021-02-17 06:00] VITALS: BP 114/59; PULSE 80; RESP 18; TEMP 36.7; O2SAT 97
[2021-02-17] MEDS: OLANZapine ODT 10 MG TAB.RAPDIS TRANSLINGU ×2 (08:55→19:53)
[2021-02-17 16:36] LABS: IDNOW Serial# 9DD0AD1C; Strep A Nucleic Acid Negative (Negative)
[2021-02-17 16:40] LABS: COVID-19 Test Negative (Negative)
[2021-02-17 18:00] VITALS: BP 132/75; PULSE 95; TEMP 37.1
[2021-02-18] MEDS: LORazepam 1 MG TABLET PO (02:50)
[2021-02-18] MEDS: Benztropine Mesylate 1 MG TABLET PO (02:50)
[2021-02-18 06:00] VITALS: BP 122/71; PULSE 88; RESP 16; TEMP 36.7
[2021-02-18] MEDS: OLANZapine ODT 10 MG TAB.RAPDIS TRANSLINGU ×2 (09:25→20:54)
--- NOTE | 2021-02-18 11:32 | HO.PSYCHPN ---
Subjective Subjective Date of Service: 02/18/21 Reason For Visit: depression, SI Subjective Notes: Conditional Voluntary Interim History: Pt continues to report that voices are telling him to hurt himself. He reports feeling overwhelmed, he denies any plan or intent to harm self but believes his david is to . Pt also talks about after life and his soul being tortured after. He is religiouly preoccupied. Pt reports depressed mood, anxious mood. Medication Compliance: Yes Side effects from medications: No Attending Groups: No Review of Systems Acute medical concerns: No Medical Review of Systems: unchanged Review of Systems: reported sore throat negative covid test 02/17 negative strep test 02/17 Review of Systems Review of Systems Yes all other systems are reviewed and are negative Mental Status Exam Mental Status Exam Narrative: Pt is alert and oriented. He is unkempt. He is reporting voices teling him he must . He beleives it is his fate. has poor insight into psychotic sx. No Tics or Tremors. No abnormal involuntary movements. Pt is calm but suspicious and guarded. Non-pressured speech, non-spontaneous with notable prolonged speech latency, no dysarthria. Mood is ?depressed,? affect constricted. denies SI intent or plan, denies SIB. Denies HI upon inquiry. continues to endorse command AH/VH and denominational preoccupation, paranoid delusional thought content. Appears to have thought blocking, bizarre content. Cognitive/memory problems secondary to psychiatric symptoms. Insight/ Judgment poor. Diagnostics Vital Signs (24Hr): Vital Signs - 24 hr 02/17/21 18:00 02/18/21 06:00 Temperature 98.8 F 98.1 F Pulse Rate 95 88 Respiratory Rate 16 Blood Pressure 132/75 122/71 BMI result Body Mass Index 24.9 Labs Results: 02/10/21 21:47 02/10/21 21:47 Labs: Laboratory Results - last 48 hr 02/17/21 02/17/21 16:01 16:01 COVID-19 (FILIBERTO) Negative COVID-19 Clin Com See Note S. pyogenes GrpA HITESH Negative Medications Medications Current Medications Acetaminophen (Acetaminophen 325 Mg Tablet) 650 mg PO Q6H PRN PRN Reason: Headache/Pain Mild Scale (1-3) Last Admin: 02/15/21 19:09 Dose: 650 mg Documented by: Al Hydroxide/Mg Hydroxide (Magnesium Hydrox/Alum Hydrox 30 Ml Oral.Susp) 30 ml PO Q6H PRN PRN Reason: Heartburn/Nausea Benztropine Mesylate (Benztropine Mesylate 1 Mg Tablet) 1 mg PO Q8H PRN PRN Reason: EPS/dystonia Last Admin: 02/18/21 02:50 Dose: 1 mg Documented by: Hydroxyzine HCl (Hydroxyzine Hcl 25 Mg Tablet) 25 mg PO Q6H PRN PRN Reason: Anxiety Last Admin: 02/16/21 18:30 Dose: 25 mg Documented by: Lorazepam (Lorazepam 1 Mg Tablet) 1 mg PO Q4H PRN PRN Reason: Anxiety Last Admin: 02/18/21 02:50 Dose: 1 mg Documented by: Magnesium Hydroxide (Milk Of Magnesia 30 Ml Oral.Susp) 30 ml PO DAILY PRN PRN Reason: Constipation Olanzapine (Olanzapine Odt 10 Mg Tab.Rapdis) 10 mg TRANSLINGU BID TABITHA Last Admin: 02/18/21 09:25 Dose: 10 mg Documented by: Trazodone HCl (Trazodone Hcl 50 Mg Tablet) 50 mg PO BEDTIME PRN PRN Reason: Insomnia Allergies Allergies Allergy/AdvReac Type Severity Reaction Status Date / Time No Known Allergies Allergy Verified 02/10/21 20:10 Assessment & Plan Assessment & Plan (1) Schizoaffective disorder, bipolar type: Status: Acute Code(s): F25.0 - Schizoaffective disorder, bipolar type Assessment and Plan: Pt is a 25 y.o. male who carries a dx of schizoaffective disorder, cannabis use disorder. He presents with sx of A/VH, delusional thought content, SI but unable to articulate a plan, poor sleep, poor appetite, and decompensation in self care. Pt has been non-adherent with meds x 1 mo, recent discharge from [facility] and had been started on latuda and lithium. Pt reports stopping meds due to side effects. He is ambivalent about starting medication but is willing to trial zyprexa. Pt has long hx of impulsive behaviors, agitation, and mood lability. Will start zyprexa 10 mg QHS to target psychotic sx. Pt's father insists pt has had sensitivity and adverse responses to past med trials. 02/15- increase olanzapine to 10mg po BID 02/16- continue olanzapine 10mg po BID. pt continues with CAH, to starve self to as his david. thinks he hears God's voice. denies any plan or intent to hurt self. 02/18/31 Continue with plan Monitor response to medications. Monitor for safety in the milieu. Discharge on stabilization. Patient seen. Chart reviewed. Discussed with team. Obtain collateral contact info?as needed I spent minutes with the patient and/or on the patient floor today, greater than?50% of which was spent counseling/coordinating care. Reason for contiued inpatient stay Substantial Risk for: harm to self, inability to function and rapid decompensation
[2021-02-18 21:03] VITALS: BP 135/71; PULSE 99; RESP 18; TEMP 36.6; O2SAT 98
[2021-02-19 06:49] VITALS: BP 96/60; PULSE 97; RESP 16; TEMP 36.4; O2SAT 99
[2021-02-19] MEDS: OLANZapine ODT 10 MG TAB.RAPDIS TRANSLINGU ×2 (08:23→20:11)
--- NOTE | 2021-02-19 11:52 | P.PNPSI_ITS ---
Subjective Subjective Date of Service: 02/19/21 Reason For Visit: depression, SI Interim History: pt pacing in land; continues with depression and voices telling him he needs to , continues with SI, anxious. Asks for medication midday for voices. Medication Compliance: Yes Side effects from medications: No Review of Systems Acute medical concerns: No Medical Review of Systems: unchanged Review of Systems Review of Systems Yes all other systems are reviewed and are negative Mental Status Exam Mental Status Exam Narrative: Pt is alert and oriented. He is unkempt. He is reporting voices teling him he must . He believes it is his fate. has poor insight into psychotic sx. although asks for more medication so shows some insight into need for treatment. No Tics or Tremors. No abnormal involuntary movements. Pt is calm but suspicious and guarded. Non-pressured speech, non-spontaneous with notable prolonged speech latency. Mood is ?depressed,? affect constricted. denies SI intent or plan, denies SIB. Denies HI upon inquiry. continues to endorse command AH/VH and sikhism preoccupation, paranoid delusional thought content. Appears to have thought blocking, bizarre content. Cognitive/memory problems secondary to psychiatric symptoms. Insight/ Judgment fair. Diagnostics Vital Signs (24Hr): Vital Signs - 24 hr 02/18/21 21:03 02/19/21 06:49 Temperature 97.8 F 97.5 F Pulse Rate 99 97 Respiratory Rate 18 16 Blood Pressure 135/71 96/60 Pulse Oximetry 98 99 BMI result Body Mass Index 24.9 Labs Results: 02/10/21 21:47 02/10/21 21:47 Labs: Laboratory Results - last 48 hr 02/17/21 02/17/21 16:01 16:01 COVID-19 (FILIBERTO) Negative COVID-19 Clin Com See Note S. pyogenes GrpA HITESH Negative Medications Medications Current Medications Acetaminophen (Acetaminophen 325 Mg Tablet) 650 mg PO Q6H PRN PRN Reason: Headache/Pain Mild Scale (1-3) Last Admin: 02/15/21 19:09 Dose: 650 mg Documented by: Al Hydroxide/Mg Hydroxide (Magnesium Hydrox/Alum Hydrox 30 Ml Oral.Susp) 30 ml PO Q6H PRN PRN Reason: Heartburn/Nausea Benzocaine (Throat Lozenge, Medicated Lozenge) 1 lozenge MUCOUS MEM Q2H PRN PRN Reason: Sore Throat Benztropine Mesylate (Benztropine Mesylate 1 Mg Tablet) 1 mg PO Q8H PRN PRN Reason: EPS/dystonia Last Admin: 02/18/21 02:50 Dose: 1 mg Documented by: Hydroxyzine HCl (Hydroxyzine Hcl 25 Mg Tablet) 25 mg PO Q6H PRN PRN Reason: Anxiety Last Admin: 02/16/21 18:30 Dose: 25 mg Documented by: Lorazepam (Lorazepam 1 Mg Tablet) 1 mg PO Q4H PRN PRN Reason: Anxiety Last Admin: 02/18/21 02:50 Dose: 1 mg Documented by: Magnesium Hydroxide (Milk Of Magnesia 30 Ml Oral.Susp) 30 ml PO DAILY PRN PRN Reason: Constipation Olanzapine (Olanzapine Odt 10 Mg Tab.Rapdis) 10 mg TRANSLINGU BID TABITHA Last Admin: 02/19/21 08:23 Dose: 10 mg Documented by: Olanzapine (Olanzapine 2.5 Mg Tablet) 2.5 mg PO DAILY@1200 TABITHA Trazodone HCl (Trazodone Hcl 50 Mg Tablet) 50 mg PO BEDTIME PRN PRN Reason: Insomnia Allergies Allergies Allergy/AdvReac Type Severity Reaction Status Date / Time No Known Allergies Allergy Verified 02/10/21 20:10 Assessment & Plan Assessment & Plan (1) Schizoaffective disorder, bipolar type: Status: Acute Code(s): F25.0 - Schizoaffective disorder, bipolar type Assessment and Plan: Pt is a 25 y.o. male who carries a dx of schizoaffective disorder, cannabis use disorder. He presents with sx of A/VH, delusional thought content, SI but unable to articulate a plan, poor sleep, poor appetite, and decompensation in self care. Pt has been non-adherent with meds x 1 mo, recent discharge from [facility] and had been started on latuda and lithium. Pt reports stopping meds due to side effects. He is ambivalent about starting medication but is willing to trial zyprexa. Pt has long hx of impulsive behaviors, agitation, and mood lability. Will start zyprexa 10 mg QHS to target psychotic sx. Pt's father insists pt has had sensitivity and adverse responses to past med trials. 02/15- increase olanzapine to 10mg po BID 02/16- continue olanzapine 10mg po BID. pt continues with CAH, to starve self to as his david. thinks he hears God's voice. denies any plan or intent to hurt self. 02/18/31 Continue with plan 02/19/21 add zyprexa 2.5 mg at noon daily (will make small adjustments up due to father's concern of side effects/sensitivities per record) Monitor response to medications. Monitor for safety in the milieu. Discharge on stabilization. Patient seen. Chart reviewed. Discussed with team. Obtain collateral contact info?as needed I spent minutes with the patient and/or on the patient floor today, greater than?50% of which was spent counseling/coordinating care. Reason for contiued inpatient stay Substantial Risk for: harm to self, inability to function and rapid decompensation
[2021-02-19] MEDS: OLANZapine 2.5 MG TABLET PO (11:58)
[2021-02-19 17:20] VITALS: BP 123/66; PULSE 100; TEMP 36.5; O2SAT 96
[2021-02-19] MEDS: traZODone HCL 50 MG TABLET PO (20:11)
[2021-02-19] MEDS: Benztropine Mesylate 1 MG TABLET PO (22:07)
[2021-02-20 06:53] VITALS: BP 129/71; PULSE 106; RESP 16; TEMP 36.6; O2SAT 98
[2021-02-20] MEDS: OLANZapine ODT 10 MG TAB.RAPDIS TRANSLINGU ×2 (08:23→20:06)
[2021-02-20 08:25] VITALS: BP 126/92; PULSE 89
--- NOTE | 2021-02-20 10:46 | HO.PSYCHPN ---
Subjective Subjective Date of Service: 02/20/21 Reason For Visit: depression, SI Interim History: Pt depressed and anxious. pt pacing in land; continues with depression and voices telling him he needs to , continues with SI, anxious. Medication Compliance: Yes Side effects from medications: No Attending Groups: No Review of Systems Acute medical concerns: No Medical Review of Systems: unchanged Review of Systems Review of Systems Yes all other systems are reviewed and are negative Mental Status Exam Mental Status Exam Narrative: Pt is alert and oriented. He is casually dressed; hygiene fair. He is reporting voices teling him he must . He believes it is his fate. has poor insight into psychotic sx. although asks for more medication so shows some insight into need for treatment. No Tics or Tremors. No abnormal involuntary movements. Pt is calm but suspicious and guarded. Non-pressured speech, non-spontaneous with notable prolonged speech latency. Mood is ?depressed,? affect constricted. denies SI intent or plan, denies SIB. Denies HI upon inquiry. continues to endorse command AH/VH and evangelical preoccupation, paranoid delusional thought content. Appears to have thought blocking, bizarre content. Cognitive/memory problems secondary to psychiatric symptoms. Insight/ Judgment fair. Diagnostics Vital Signs (24Hr): Vital Signs - 24 hr 02/19/21 17:20 02/20/21 06:53 02/20/21 08:25 Temperature 97.7 F 98 F Pulse Rate 100 106 H 89 Respiratory Rate 16 Blood Pressure 123/66 129/71 126/92 H Pulse Oximetry 96 98 BMI result Body Mass Index 24.9 Labs Results: 02/10/21 21:47 02/10/21 21:47 Medications Medications Current Medications Acetaminophen (Acetaminophen 325 Mg Tablet) 650 mg PO Q6H PRN PRN Reason: Headache/Pain Mild Scale (1-3) Last Admin: 02/15/21 19:09 Dose: 650 mg Documented by: Al Hydroxide/Mg Hydroxide (Magnesium Hydrox/Alum Hydrox 30 Ml Oral.Susp) 30 ml PO Q6H PRN PRN Reason: Heartburn/Nausea Benzocaine (Throat Lozenge, Medicated Lozenge) 1 lozenge MUCOUS MEM Q2H PRN PRN Reason: Sore Throat Benztropine Mesylate (Benztropine Mesylate 1 Mg Tablet) 1 mg PO Q8H PRN PRN Reason: EPS/dystonia Last Admin: 02/19/21 22:07 Dose: 1 mg Documented by: Hydroxyzine HCl (Hydroxyzine Hcl 25 Mg Tablet) 25 mg PO Q6H PRN PRN Reason: Anxiety Last Admin: 02/16/21 18:30 Dose: 25 mg Documented by: Lorazepam (Lorazepam 1 Mg Tablet) 1 mg PO Q4H PRN PRN Reason: Anxiety Last Admin: 02/18/21 02:50 Dose: 1 mg Documented by: Magnesium Hydroxide (Milk Of Magnesia 30 Ml Oral.Susp) 30 ml PO DAILY PRN PRN Reason: Constipation Olanzapine (Olanzapine Odt 10 Mg Tab.Rapdis) 10 mg TRANSLINGU BID [facility] Last Admin: 02/20/21 08:23 Dose: 10 mg Documented by: Olanzapine (Olanzapine 2.5 Mg Tablet) 2.5 mg PO DAILY@1200 [facility] Last Admin: 02/19/21 11:58 Dose: 2.5 mg Documented by: Trazodone HCl (Trazodone Hcl 50 Mg Tablet) 50 mg PO BEDTIME PRN PRN Reason: Insomnia Last Admin: 02/19/21 20:11 Dose: 50 mg Documented by: Allergies Allergies Allergy/AdvReac Type Severity Reaction Status Date / Time No Known Allergies Allergy Verified 02/10/21 20:10 Assessment & Plan Assessment & Plan (1) Schizoaffective disorder, bipolar type: Status: Acute Code(s): F25.0 - Schizoaffective disorder, bipolar type Assessment and Plan: Pt is a 25 y.o. male who carries a dx of schizoaffective disorder, cannabis use disorder. He presents with sx of A/VH, delusional thought content, SI but unable to articulate a plan, poor sleep, poor appetite, and decompensation in self care. Pt has been non-adherent with meds x 1 mo, recent discharge from [facility] and had been started on latuda and lithium. Pt reports stopping meds due to side effects. He is ambivalent about starting medication but is willing to trial zyprexa. Pt has long hx of impulsive behaviors, agitation, and mood lability. Will start zyprexa 10 mg QHS to target psychotic sx. Pt's father insists pt has had sensitivity and adverse responses to past med trials. 12/28- increase olanzapine to 10mg po BID 12/29- continue olanzapine 10mg po BID. pt continues with CAH, to starve self to as his david. thinks he hears God's voice. denies any plan or intent to hurt self. 02/18/31 Continue with plan 02/19/21 add zyprexa 2.5 mg at noon daily (will make small adjustments up due to father's concern of side effects/sensitivities per record) 02/20/21 continue with current treatmen plan Monitor response to medications. Monitor for safety in the milieu. Discharge on stabilization. Patient seen. Chart reviewed. Discussed with team. Obtain collateral contact info?as needed I spent minutes with the patient and/or on the patient floor today, greater than?50% of which was spent counseling/coordinating care. Reason for contiued inpatient stay Substantial Risk for: harm to self, inability to function and rapid decompensation
[2021-02-20] MEDS: OLANZapine 2.5 MG TABLET PO (11:05)
[2021-02-20 18:00] VITALS: BP 124/78; PULSE 92
[2021-02-21 06:00] VITALS: BP 105/56; PULSE 72; RESP 14; TEMP 36.6; O2SAT 98
[2021-02-21] MEDS: OLANZapine ODT 10 MG TAB.RAPDIS TRANSLINGU ×2 (09:04→21:13)
[2021-02-21] MEDS: Benztropine Mesylate 1 MG TABLET PO (09:27)
--- NOTE | 2021-02-21 13:57 | P.PNPSI_ITS ---
Subjective Subjective Date of Service: 02/21/21 Reason For Visit: depression, SI Subjective Notes: Conditional Voluntary Interim History: Pt reports less AH in terms of decrease frequency and intensity. He continues to report that when he hears voices, voices continue to tell him that he has to to starve to . he denies suicidal or homicidal ideation. he denies any plan or intent to hurt himself when commanded with voices. He shows some increase insight in that he notes that voices related to mental illness and need for treatment. Per nursing, he has been more visible in the unit, slightly more social with selected peers. No behavioral concerns. Medication Compliance: Yes Review of Systems Review of Systems Yes all other systems are reviewed and are negative Mental Status Exam Mental Status Exam Narrative: Pt is alert and oriented. Pt hygiene is improved, casually groomed, in NAD. Good eye contact, more attentive. No Tics or Tremors. No abnormal involuntary movements. Pt is calm, less tortured by voices. Non-pressured speech, spontaneous, soft tone, less delayed rate in response. Mood is ?better,? affect constricted but brighter, less anxious and less fearful. Currently denies SI, denies SIB. Denies HI upon inquiry. continues to endorse command AH/VH and sabianist preoccupation, paranoid delusional thought content but denies any plan or intent to hurt self. Cognitive/memory problems secondary to psychiatric symptoms. Insight/ Judgment improving. Diagnostics Vital Signs (24Hr): Vital Signs - 24 hr 02/20/21 18:00 02/21/21 06:00 Temperature 97.9 F Pulse Rate 92 72 Respiratory Rate 14 Blood Pressure 124/78 105/56 L Pulse Oximetry 98 BMI result Body Mass Index 24.9 Labs Results: 02/10/21 21:47 02/10/21 21:47 Medications Medications Current Medications Acetaminophen (Acetaminophen 325 Mg Tablet) 650 mg PO Q6H PRN PRN Reason: Headache/Pain Mild Scale (1-3) Last Admin: 02/15/21 19:09 Dose: 650 mg Documented by: Al Hydroxide/Mg Hydroxide (Magnesium Hydrox/Alum Hydrox 30 Ml Oral.Susp) 30 ml PO Q6H PRN PRN Reason: Heartburn/Nausea Benzocaine (Throat Lozenge, Medicated Lozenge) 1 lozenge MUCOUS MEM Q2H PRN PRN Reason: Sore Throat Benztropine Mesylate (Benztropine Mesylate 1 Mg Tablet) 1 mg PO Q8H PRN PRN Reason: EPS/dystonia Last Admin: 02/21/21 09:27 Dose: 1 mg Documented by: Hydroxyzine HCl (Hydroxyzine Hcl 25 Mg Tablet) 25 mg PO Q6H PRN PRN Reason: Anxiety Last Admin: 02/16/21 18:30 Dose: 25 mg Documented by: Lorazepam (Lorazepam 1 Mg Tablet) 1 mg PO Q6H PRN PRN Reason: Anxiety Magnesium Hydroxide (Milk Of Magnesia 30 Ml Oral.Susp) 30 ml PO DAILY PRN PRN Reason: Constipation Olanzapine (Olanzapine Odt 10 Mg Tab.Rapdis) 20 mg TRANSLINGU BEDTIME TABITHA Olanzapine (Olanzapine Odt 10 Mg Tab.Rapdis) 10 mg TRANSLINGU ONCE ONE Stop: 02/21/21 21:01 Trazodone HCl (Trazodone Hcl 50 Mg Tablet) 50 mg PO BEDTIME PRN PRN Reason: Insomnia Last Admin: 02/19/21 20:11 Dose: 50 mg Documented by: Allergies Allergies Allergy/AdvReac Type Severity Reaction Status Date / Time No Known Allergies Allergy Verified 02/10/21 20:10 Assessment & Plan Assessment & Plan (1) Schizoaffective disorder, bipolar type: Status: Acute Code(s): F25.0 - Schizoaffective disorder, bipolar type Assessment and Plan: Pt is a 25 y.o. male who carries a dx of schizoaffective disorder, cannabis use disorder. He presents with sx of A/VH, delusional thought content, SI but unable to articulate a plan, poor sleep, poor appetite, and decompensation in self care. Pt has been non-adherent with meds x 1 mo, recent discharge from [facility] and had been started on latuda and lithium. Pt reports stopping meds due to side effects. He is ambivalent about starting medication but is willing to trial zyprexa. Pt has long hx of impulsive behaviors, agitation, and mood lability. Will start zyprexa 10 mg QHS to target psychotic sx. Pt's father insists pt has had sensitivity and adverse responses to past med trials. 02/15- increase olanzapine to 10mg po BID 02/16- continue olanzapine 10mg po BID. pt continues with CAH, to starve self to as his david. thinks he hears God's voice. denies any plan or intent to hurt self. 02/18/31 Continue with plan 02/19/21 add zyprexa 2.5 mg at noon daily (will make small adjustments up due to father's concern of side effects/sensitivities per record) 02/20/21 continue with current treatmen plan 02/21- increase olanzapine to 20mg po qhs and 5 mg po daily. less CAH, but continues to hear voices. No SI/HI. Monitor response to medications. Monitor for safety in the milieu. Discharge on stabilization. Patient seen. Chart reviewed. Discussed with team. Obtain collateral contact info?as needed I spent minutes with the patient and/or on the patient floor today, greater than?50% of which was spent counseling/coordinating care. Reason for contiued inpatient stay Substantial Risk for: harm to self and inability to function
[2021-02-22 06:00] VITALS: BP 104/57; PULSE 70; RESP 20; TEMP 36.1; O2SAT 98
[2021-02-22] MEDS: OLANZapine 5 MG TABLET PO (08:28)
--- NOTE | 2021-02-22 13:16 | P.PNPSI_ITS ---
Subjective Subjective Date of Service: 02/22/21 Reason For Visit: depression, SI Subjective Notes: Conditional Voluntary Interim History: Pt reports less voices this morning and today. He continues to report some sedation with medication ni the morning. Pt reports voices telling him to hurt himself. He reports he has not plan or intent to hurt himself. He denies SI/HI. He has been able to attend some groups as voices are less but continue to be tormenting him. Per nursing, he has been more visible in the unit, slightly more social with selected peers. No behavioral concerns. we have family meeting scheduled for tomorrow. Medication Compliance: Yes Review of Systems Review of Systems Yes all other systems are reviewed and are negative Mental Status Exam Mental Status Exam Narrative: Pt is alert and oriented. Pt hygiene is improved, casually groomed, in NAD. Good eye contact, more attentive. No Tics or Tremors. No abnormal involuntary movements. Pt is calm, less tortured by voices. Non-pressured speech, spontaneous, soft tone, less delayed rate in response. Mood is ?better,? affect constricted but brighter, less anxious and less fearful. Currently denies SI, denies SIB. Denies HI upon inquiry. continues to endorse command AH/VH and gnosticist preoccupation, paranoid delusional thought content but denies any plan or intent to hurt self. Cognitive/memory problems secondary to psychiatric symptoms. Insight/ Judgment improving. Diagnostics Vital Signs (24Hr): Vital Signs - 24 hr 02/22/21 06:00 Temperature 96.9 F Pulse Rate 70 Respiratory Rate 20 Blood Pressure 104/57 L Pulse Oximetry 98 BMI result Body Mass Index 24.9 Labs Results: 02/10/21 21:47 02/10/21 21:47 Medications Medications Current Medications Acetaminophen (Acetaminophen 325 Mg Tablet) 650 mg PO Q6H PRN PRN Reason: Headache/Pain Mild Scale (1-3) Last Admin: 02/15/21 19:09 Dose: 650 mg Documented by: Al Hydroxide/Mg Hydroxide (Magnesium Hydrox/Alum Hydrox 30 Ml Oral.Susp) 30 ml PO Q6H PRN PRN Reason: Heartburn/Nausea Benzocaine (Throat Lozenge, Medicated Lozenge) 1 lozenge MUCOUS MEM Q2H PRN PRN Reason: Sore Throat Benztropine Mesylate (Benztropine Mesylate 1 Mg Tablet) 1 mg PO Q8H PRN PRN Reason: EPS/dystonia Last Admin: 02/21/21 09:27 Dose: 1 mg Documented by: Hydroxyzine HCl (Hydroxyzine Hcl 25 Mg Tablet) 25 mg PO Q6H PRN PRN Reason: Anxiety Last Admin: 02/16/21 18:30 Dose: 25 mg Documented by: Lorazepam (Lorazepam 1 Mg Tablet) 1 mg PO Q6H PRN PRN Reason: Anxiety Magnesium Hydroxide (Milk Of Magnesia 30 Ml Oral.Susp) 30 ml PO DAILY PRN PRN Reason: Constipation Olanzapine (Olanzapine Odt 10 Mg Tab.Rapdis) 20 mg TRANSLINGU BEDTIME TABITHA Olanzapine (Olanzapine 5 Mg Tablet) 5 mg PO DAILY TABITHA Last Admin: 02/22/21 08:28 Dose: 5 mg Documented by: Trazodone HCl (Trazodone Hcl 50 Mg Tablet) 50 mg PO BEDTIME PRN PRN Reason: Insomnia Last Admin: 02/19/21 20:11 Dose: 50 mg Documented by: Allergies Allergies Allergy/AdvReac Type Severity Reaction Status Date / Time No Known Allergies Allergy Verified 02/10/21 20:10 Assessment & Plan Assessment & Plan (1) Schizoaffective disorder, bipolar type: Status: Acute Code(s): F25.0 - Schizoaffective disorder, bipolar type Assessment and Plan: Pt is a 25 y.o. male who carries a dx of schizoaffective disorder, cannabis use disorder. He presents with sx of A/VH, delusional thought content, SI but unable to articulate a plan, poor sleep, poor appetite, and decompensation in self care. Pt has been non-adherent with meds x 1 mo, recent discharge from [facility] and had been started on latuda and lithium. Pt reports stopping meds due to side effects. He is ambivalent about starting medication but is willing to trial zyprexa. Pt has long hx of impulsive behaviors, agitation, and mood lability. Will start zyprexa 10 mg QHS to target psychotic sx. Pt's father insists pt has had sensitivity and adverse responses to past med trials. 02/15- increase olanzapine to 10mg po BID 02/16- continue olanzapine 10mg po BID. pt continues with CAH, to starve self to as his david. thinks he hears God's voice. denies any plan or intent to hurt self. 02/18/31 Continue with plan 02/19/21 add zyprexa 2.5 mg at noon daily (will make small adjustments up due to father's concern of side effects/sensitivities per record) 02/20/21 continue with current treatmen plan 02/21- increase olanzapine to 20mg po qhs and 5 mg po daily. less CAH, but continues to hear voices. No SI/HI. Monitor response to medications. Monitor for safety in the milieu. Discharge on stabilization. Patient seen. Chart reviewed. Discussed with team. Obtain collateral contact info?as needed I spent minutes with the patient and/or on the patient floor today, greater than?50% of which was spent counseling/coordinating care. Reason for contiued inpatient stay Substantial Risk for: harm to self and inability to function
[2021-02-22 18:00] VITALS: BP 132/85; PULSE 86; RESP 16; TEMP 37; O2SAT 96
[2021-02-22] MEDS: OLANZapine ODT 10 MG TAB.RAPDIS 20 MG TRANSLINGU (19:45)
[2021-02-23 06:00] VITALS: BP 99/53; PULSE 68; RESP 16; TEMP 36.9; O2SAT 98
[2021-02-23] MEDS: OLANZapine 5 MG TABLET PO (08:55)
--- NOTE | 2021-02-23 10:48 | P.PNPSI_ITS ---
Subjective Subjective Date of Service: 02/23/21 Reason For Visit: depression, SI Subjective Notes: Conditional Voluntary Interim History: Pt reports less auditory hallucinations, he reports they continue to be command in nature. He reports voices telling him to starve to and he thinks this may be God telling him to do it. He does question more that voices may be sign of mental illness as he notes connection between medication and lowered voices. He has been more visible in the unit and social with peers. He continues to report feeling sedated during the day and needing to lay down in bed. This underwriter solicitation director spoke with both pt's parents, answer their questions in terms of dx- schizoaffective disorder rather than brief psychosis due to cannabis, which he has not used in 6 months. Medication Compliance: Yes Side effects from medications: No Attending Groups: Intermittent Review of Systems Acute medical concerns: No Review of Systems Review of Systems Yes all other systems are reviewed and are negative Mental Status Exam Mental Status Exam Narrative: Pt is alert and oriented. Pt hygiene is improved, casually groomed, in NAD. Good eye contact, more attentive. No Tics or Tremors. No abnormal involuntary movements. Pt is calm, less tortured by voices. Non-pressured speech, spontaneous, soft tone, less delayed rate in response. Mood is ?better,? affect constricted but brighter, less anxious and less fearful. Currently denies SI, denies SIB. Denies HI upon inquiry. continues to endorse command AH/VH and lutheran preoccupation, paranoid delusional thought content but denies any plan or intent to hurt self. Cognitive/memory problems secondary to psychiatric symptoms. Insight/ Judgment improving. Diagnostics Vital Signs (24Hr): Vital Signs - 24 hr 02/23/21 18:00 02/24/21 06:00 Temperature 97.2 F 97.8 F Pulse Rate 88 82 Respiratory Rate 20 14 Blood Pressure 123/58 L 114/67 Pulse Oximetry 98 95 BMI result Body Mass Index 24.9 Labs Results: 02/10/21 21:47 02/10/21 21:47 Medications Medications Current Medications Acetaminophen (Acetaminophen 325 Mg Tablet) 650 mg PO Q6H PRN PRN Reason: Headache/Pain Mild Scale (1-3) Last Admin: 02/15/21 19:09 Dose: 650 mg Documented by: Al Hydroxide/Mg Hydroxide (Magnesium Hydrox/Alum Hydrox 30 Ml Oral.Susp) 30 ml PO Q6H PRN PRN Reason: Heartburn/Nausea Benzocaine (Throat Lozenge, Medicated Lozenge) 1 lozenge MUCOUS MEM Q2H PRN PRN Reason: Sore Throat Benztropine Mesylate (Benztropine Mesylate 1 Mg Tablet) 1 mg PO Q8H PRN PRN Reason: EPS/dystonia Last Admin: 02/21/21 09:27 Dose: 1 mg Documented by: Hydroxyzine HCl (Hydroxyzine Hcl 25 Mg Tablet) 25 mg PO Q6H PRN PRN Reason: Anxiety Last Admin: 02/16/21 18:30 Dose: 25 mg Documented by: Lorazepam (Lorazepam 1 Mg Tablet) 1 mg PO Q6H PRN PRN Reason: Anxiety Magnesium Hydroxide (Milk Of Magnesia 30 Ml Oral.Susp) 30 ml PO DAILY PRN PRN Reason: Constipation Olanzapine (Olanzapine Odt 10 Mg Tab.Rapdis) 20 mg TRANSLINGU BEDTIME [facility] Last Admin: 02/23/21 21:03 Dose: 20 mg Documented by: Olanzapine (Olanzapine 5 Mg Tablet) 5 mg PO DAILY [facility] Last Admin: 02/24/21 08:36 Dose: 5 mg Documented by: Trazodone HCl (Trazodone Hcl 50 Mg Tablet) 50 mg PO BEDTIME PRN PRN Reason: Insomnia Last Admin: 02/19/21 20:11 Dose: 50 mg Documented by: Allergies Allergies Allergy/AdvReac Type Severity Reaction Status Date / Time No Known Allergies Allergy Verified 02/10/21 20:10 Assessment & Plan Assessment & Plan (1) Schizoaffective disorder, bipolar type: Status: Acute Code(s): F25.0 - Schizoaffective disorder, bipolar type Assessment and Plan: Pt is a 25 y.o. male who carries a dx of schizoaffective disorder, cannabis use disorder. He presents with sx of A/VH, delusional thought content, SI but unable to articulate a plan, poor sleep, poor appetite, and decompensation in self care. Pt has been non-adherent with meds x 1 mo, recent discharge from [facility] and had been started on latuda and lithium. Pt reports stopping meds due to side effects. He is ambivalent about starting medication but is willing to trial zyprexa. Pt has long hx of impulsive behaviors, agitation, and mood lability. Will start zyprexa 10 mg QHS to target psychotic sx. Pt's father insists pt has had sensitivity and adverse responses to past med trials. 02/15- increase olanzapine to 10mg po BID 02/16- continue olanzapine 10mg po BID. pt continues with CAH, to starve self to as his david. thinks he hears God's voice. denies any plan or intent to hurt self. 02/18/31 Continue with plan 02/19/21 add zyprexa 2.5 mg at noon daily (will make small adjustments up due to father's concern of side effects/sensitivities per record) 02/20/21 continue with current treatmen plan 02/21- increase olanzapine to 20mg po qhs and 5 mg po daily. less CAH, but continues to hear voices. No SI/HI. Monitor response to medications. Monitor for safety in the milieu. Discharge on stabilization. Patient seen. Chart reviewed. Discussed with team. Obtain collateral contact info?as needed I spent minutes with the patient and/or on the patient floor today, greater than?50% of which was spent counseling/coordinating care. Reason for contiued inpatient stay Substantial Risk for: harm to self and inability to function
[2021-02-23 18:00] VITALS: BP 123/58; PULSE 88; RESP 20; TEMP 36.2; O2SAT 98
[2021-02-23] MEDS: OLANZapine ODT 10 MG TAB.RAPDIS 20 MG TRANSLINGU (21:03)
[2021-02-24 06:00] VITALS: BP 114/67; PULSE 82; RESP 14; TEMP 36.6; O2SAT 95
[2021-02-24 07:00] VITALS: BMI 26.9
[2021-02-24] MEDS: OLANZapine 5 MG TABLET PO (08:36)
--- NOTE | 2021-02-24 10:52 | HO.PSYCHPN ---
Subjective Subjective Date of Service: 02/24/21 Reason For Visit: depression, SI Subjective Notes: Conditional Voluntary Interim History: Pt reports less CAH, although continues to hear voices but less distressing. He reports less anxious mood, less depressed mood which was triggered by delusions and AH. However, he reports he is too sedated with olanzapine even when he takes it mostly at bedtime. We discussed switching to risperidone- which he agrees. This automatic typewriter inspector spoke with both pt's parents, answer their questions in terms of dx- schizoaffective disorder rather than brief psychosis due to cannabis, which he has not used in 6 months. Medication Compliance: Yes Review of Systems Review of Systems Yes all other systems are reviewed and are negative Mental Status Exam Mental Status Exam Narrative: Pt is alert and oriented. Pt hygiene is improved, casually groomed, in NAD. Good eye contact, more attentive. No Tics or Tremors. No abnormal involuntary movements. Pt is calm, less tortured by voices. Non-pressured speech, spontaneous, soft tone, less delayed rate in response. Mood is ?better,? affect constricted but brighter, less anxious and less fearful. Currently denies SI, denies SIB. Denies HI upon inquiry. continues to endorse command AH/VH and pentecostal preoccupation, paranoid delusional thought content but denies any plan or intent to hurt self. Cognitive/memory problems secondary to psychiatric symptoms. Insight/ Judgment improving. Diagnostics Vital Signs (24Hr): Vital Signs - 24 hr 02/23/21 18:00 02/24/21 06:00 Temperature 97.2 F 97.8 F Pulse Rate 88 82 Respiratory Rate 20 14 Blood Pressure 123/58 L 114/67 Pulse Oximetry 98 95 BMI result Body Mass Index 24.9 Labs Results: 02/10/21 21:47 02/10/21 21:47 Medications Medications Current Medications Acetaminophen (Acetaminophen 325 Mg Tablet) 650 mg PO Q6H PRN PRN Reason: Headache/Pain Mild Scale (1-3) Last Admin: 02/15/21 19:09 Dose: 650 mg Documented by: Al Hydroxide/Mg Hydroxide (Magnesium Hydrox/Alum Hydrox 30 Ml Oral.Susp) 30 ml PO Q6H PRN PRN Reason: Heartburn/Nausea Benzocaine (Throat Lozenge, Medicated Lozenge) 1 lozenge MUCOUS MEM Q2H PRN PRN Reason: Sore Throat Benztropine Mesylate (Benztropine Mesylate 1 Mg Tablet) 1 mg PO Q8H PRN PRN Reason: EPS/dystonia Last Admin: 02/21/21 09:27 Dose: 1 mg Documented by: Hydroxyzine HCl (Hydroxyzine Hcl 25 Mg Tablet) 25 mg PO Q6H PRN PRN Reason: Anxiety Last Admin: 02/16/21 18:30 Dose: 25 mg Documented by: Lorazepam (Lorazepam 1 Mg Tablet) 1 mg PO Q6H PRN PRN Reason: Anxiety Magnesium Hydroxide (Milk Of Magnesia 30 Ml Oral.Susp) 30 ml PO DAILY PRN PRN Reason: Constipation Olanzapine (Olanzapine Odt 10 Mg Tab.Rapdis) 20 mg TRANSLINGU BEDTIME TABITHA Last Admin: 02/23/21 21:03 Dose: 20 mg Documented by: Olanzapine (Olanzapine 5 Mg Tablet) 5 mg PO DAILY [facility] Last Admin: 02/24/21 08:36 Dose: 5 mg Documented by: Trazodone HCl (Trazodone Hcl 50 Mg Tablet) 50 mg PO BEDTIME PRN PRN Reason: Insomnia Last Admin: 02/19/21 20:11 Dose: 50 mg Documented by: Allergies Allergies Allergy/AdvReac Type Severity Reaction Status Date / Time No Known Allergies Allergy Verified 02/10/21 20:10 Assessment & Plan Assessment & Plan (1) Schizoaffective disorder, bipolar type: Status: Acute Code(s): F25.0 - Schizoaffective disorder, bipolar type Assessment and Plan: Pt is a 25 y.o. male who carries a dx of schizoaffective disorder, cannabis use disorder. He presents with sx of A/VH, delusional thought content, SI but unable to articulate a plan, poor sleep, poor appetite, and decompensation in self care. Pt has been non-adherent with meds x 1 mo, recent discharge from [facility] and had been started on latuda and lithium. Pt reports stopping meds due to side effects. He is ambivalent about starting medication but is willing to trial zyprexa. Pt has long hx of impulsive behaviors, agitation, and mood lability. Will start zyprexa 10 mg QHS to target psychotic sx. Pt's father insists pt has had sensitivity and adverse responses to past med trials. 12/28- increase olanzapine to 10mg po BID 02/16- continue olanzapine 10mg po BID. pt continues with CAH, to starve self to as his david. thinks he hears God's voice. denies any plan or intent to hurt self. 02/18/31 Continue with plan 02/19/21 add zyprexa 2.5 mg at noon daily (will make small adjustments up due to father's concern of side effects/sensitivities per record) 02/20/21 continue with current treatmen plan 02/21- increase olanzapine to 20mg po qhs and 5 mg po daily. less CAH, but continues to hear voices. No SI/HI. 02/24- switch to risperidone 2mg po qhs. stop olanzapine. Monitor response to medications. Monitor for safety in the milieu. Discharge on stabilization. Patient seen. Chart reviewed. Discussed with team. Obtain collateral contact info?as needed I spent minutes with the patient and/or on the patient floor today, greater than?50% of which was spent counseling/coordinating care. Reason for contiued inpatient stay Substantial Risk for: harm to self and inability to function
[2021-02-24 17:18] VITALS: BP 112/58; PULSE 83; RESP 18; TEMP 36.9; O2SAT 97
[2021-02-24] MEDS: risperiDONE 2 MG TABLET PO (19:44)
[2021-02-25 05:31] VITALS: BP 133/66; PULSE 92; RESP 18; TEMP 36.9; O2SAT 96
--- NOTE | 2021-02-25 13:29 | HO.PSYCHPN ---
Subjective Subjective Date of Service: 02/25/21 Reason For Visit: depression, SI Subjective Notes: Conditional Voluntary Interim History: Pt reports sleeping well last night. He reports less CAH, he states he barely hears them and are not as distressing as before. He denies SI/HI. He has been increasingly more visible in the unit, social with peers. He also reports risperidone much less sedating than olanzapine and feels more awake during the day. This process description writer spoke with both pt's parents, answer their questions in terms of dx- schizoaffective disorder rather than brief psychosis due to cannabis, which he has not used in 6 months. Medication Compliance: Yes Side effects from medications: No Review of Systems Review of Systems Yes all other systems are reviewed and are negative Mental Status Exam Mental Status Exam Narrative: Pt is alert and oriented. Pt hygiene is improved, casually groomed, in NAD. Good eye contact, more attentive. No Tics or Tremors. No abnormal involuntary movements. Pt is calm, less tortured by voices. Non-pressured speech, spontaneous, soft tone, less delayed rate in response. Mood is ?better,? affect constricted but brighter, less anxious and less fearful. Currently denies SI, denies SIB. Denies HI upon inquiry. continues to endorse command AH/VH and sabianism preoccupation, paranoid delusional thought content but denies any plan or intent to hurt self. Cognitive/memory problems secondary to psychiatric symptoms. Insight/ Judgment improving. Diagnostics Vital Signs (24Hr): Vital Signs - 24 hr 02/24/21 17:18 02/25/21 05:31 Temperature 98.5 F 98.5 F Pulse Rate 83 92 Respiratory Rate 18 18 Blood Pressure 112/58 L 133/66 Pulse Oximetry 97 96 BMI result Body Mass Index 26.9 Labs Results: 02/10/21 21:47 02/10/21 21:47 Medications Medications Current Medications Acetaminophen (Acetaminophen 325 Mg Tablet) 650 mg PO Q6H PRN PRN Reason: Headache/Pain Mild Scale (1-3) Last Admin: 02/15/21 19:09 Dose: 650 mg Documented by: Al Hydroxide/Mg Hydroxide (Magnesium Hydrox/Alum Hydrox 30 Ml Oral.Susp) 30 ml PO Q6H PRN PRN Reason: Heartburn/Nausea Benzocaine (Throat Lozenge, Medicated Lozenge) 1 lozenge MUCOUS MEM Q2H PRN PRN Reason: Sore Throat Benztropine Mesylate (Benztropine Mesylate 1 Mg Tablet) 1 mg PO Q8H PRN PRN Reason: EPS/dystonia Last Admin: 02/21/21 09:27 Dose: 1 mg Documented by: Hydroxyzine HCl (Hydroxyzine Hcl 25 Mg Tablet) 25 mg PO Q6H PRN PRN Reason: Anxiety Last Admin: 02/16/21 18:30 Dose: 25 mg Documented by: Lorazepam (Lorazepam 1 Mg Tablet) 1 mg PO Q6H PRN PRN Reason: Anxiety Magnesium Hydroxide (Milk Of Magnesia 30 Ml Oral.Susp) 30 ml PO DAILY PRN PRN Reason: Constipation Risperidone (Risperidone 2 Mg Tablet) 2 mg PO BEDTIME TABITHA Last Admin: 02/24/21 19:44 Dose: 2 mg Documented by: Trazodone HCl (Trazodone Hcl 50 Mg Tablet) 50 mg PO BEDTIME PRN PRN Reason: Insomnia Last Admin: 02/19/21 20:11 Dose: 50 mg Documented by: Allergies Allergies Allergy/AdvReac Type Severity Reaction Status Date / Time No Known Allergies Allergy Verified 02/10/21 20:10 Assessment & Plan Assessment & Plan (1) Schizoaffective disorder, bipolar type: Status: Acute Code(s): F25.0 - Schizoaffective disorder, bipolar type Assessment and Plan: Pt is a 25 y.o. male who carries a dx of schizoaffective disorder, cannabis use disorder. He presents with sx of A/VH, delusional thought content, SI but unable to articulate a plan, poor sleep, poor appetite, and decompensation in self care. Pt has been non-adherent with meds x 1 mo, recent discharge from [facility] and had been started on latuda and lithium. Pt reports stopping meds due to side effects. He is ambivalent about starting medication but is willing to trial zyprexa. Pt has long hx of impulsive behaviors, agitation, and mood lability. Will start zyprexa 10 mg QHS to target psychotic sx. Pt's father insists pt has had sensitivity and adverse responses to past med trials. 02/15- increase olanzapine to 10mg po BID 02/16- continue olanzapine 10mg po BID. pt continues with CAH, to starve self to as his david. thinks he hears God's voice. denies any plan or intent to hurt self. 02/18/31 Continue with plan 02/19/21 add zyprexa 2.5 mg at noon daily (will make small adjustments up due to father's concern of side effects/sensitivities per record) 02/20/21 continue with current treatmen plan 02/21- increase olanzapine to 20mg po qhs and 5 mg po daily. less CAH, but continues to hear voices. No SI/HI. 02/24- switch to risperidone 2mg po qhs. stop olanzapine. 02/25 continue risperidone, less cAH, less anxious/less fearful, brighter, non labile affect. No SI/HI. Monitor response to medications. Monitor for safety in the milieu. Discharge on stabilization. Patient seen. Chart reviewed. Discussed with team. Obtain collateral contact info?as needed I spent minutes with the patient and/or on the patient floor today, greater than?50% of which was spent counseling/coordinating care. Reason for contiued inpatient stay Substantial Risk for: harm to self and inability to function
[2021-02-25 17:34] VITALS: BP 127/67; PULSE 108; TEMP 36
[2021-02-25] MEDS: risperiDONE 2 MG TABLET PO (20:23)
[2021-02-26] MEDS: hydrOXYzine HCL 25 MG TABLET PO (04:07)
[2021-02-26 06:50] VITALS: BP 104/55; PULSE 82; TEMP 36.9
--- NOTE | 2021-02-26 10:09 | P.PNPSI_ITS ---
Subjective Subjective Date of Service: 02/26/21 Reason For Visit: depression, SI Subjective Notes: Conditional Voluntary Interim History: Pt reports decreased CAH, but continues to hear voices. He reports feeling less sedated with risperidone. No Side effects, including dizziness or EPS. He reports sleeping well. He denies SI/HI. We discussed increasing risperidone. Medication Compliance: Yes Review of Systems Review of Systems Yes all other systems are reviewed and are negative Mental Status Exam Mental Status Exam Narrative: Pt is alert and oriented. Pt hygiene is improved, casually groomed, in NAD. Good eye contact, more attentive. No Tics or Tremors. No abnormal involuntary movements. Pt is calm, less tortured by voices. Non-pressured speech, spontaneous, soft tone, less delayed rate in response. Mood is ?better,? affect constricted but brighter, less anxious and less fearful. Currently denies SI, denies SIB. Denies HI upon inquiry. continues to endorse command AH/VH and catholic preoccupation, paranoid delusional thought content but denies any plan or intent to hurt self. Cognitive/memory problems secondary to psychiatric symptoms. Insight/ Judgment improving. Diagnostics Vital Signs (24Hr): Vital Signs - 24 hr 02/25/21 17:34 02/26/21 06:50 Temperature 96.8 F 98.4 F Pulse Rate 108 H 82 Blood Pressure 127/67 104/55 L BMI result Body Mass Index 26.9 Labs Results: 02/10/21 21:47 02/10/21 21:47 Medications Medications Current Medications Acetaminophen (Acetaminophen 325 Mg Tablet) 650 mg PO Q6H PRN PRN Reason: Headache/Pain Mild Scale (1-3) Last Admin: 02/15/21 19:09 Dose: 650 mg Documented by: Al Hydroxide/Mg Hydroxide (Magnesium Hydrox/Alum Hydrox 30 Ml Oral.Susp) 30 ml PO Q6H PRN PRN Reason: Heartburn/Nausea Benzocaine (Throat Lozenge, Medicated Lozenge) 1 lozenge MUCOUS MEM Q2H PRN PRN Reason: Sore Throat Benztropine Mesylate (Benztropine Mesylate 1 Mg Tablet) 1 mg PO Q8H PRN PRN Reason: EPS/dystonia Last Admin: 02/21/21 09:27 Dose: 1 mg Documented by: Hydroxyzine HCl (Hydroxyzine Hcl 25 Mg Tablet) 25 mg PO Q6H PRN PRN Reason: Anxiety Last Admin: 02/26/21 04:07 Dose: 25 mg Documented by: Lorazepam (Lorazepam 1 Mg Tablet) 1 mg PO Q6H PRN PRN Reason: Anxiety Magnesium Hydroxide (Milk Of Magnesia 30 Ml Oral.Susp) 30 ml PO DAILY PRN PRN Reason: Constipation Risperidone (Risperidone 2 Mg Tablet) 2 mg PO BEDTIME TABITHA Last Admin: 02/25/21 20:23 Dose: 2 mg Documented by: Trazodone HCl (Trazodone Hcl 50 Mg Tablet) 50 mg PO BEDTIME PRN PRN Reason: Insomnia Last Admin: 02/19/21 20:11 Dose: 50 mg Documented by: Allergies Allergies Allergy/AdvReac Type Severity Reaction Status Date / Time No Known Allergies Allergy Verified 02/10/21 20:10 Assessment & Plan Assessment & Plan (1) Schizoaffective disorder, bipolar type: Status: Acute Code(s): F25.0 - Schizoaffective disorder, bipolar type Assessment and Plan: Pt is a 25 y.o. male who carries a dx of schizoaffective disorder, cannabis use disorder. He presents with sx of A/VH, delusional thought content, SI but unable to articulate a plan, poor sleep, poor appetite, and decompensation in self care. Pt has been non-adherent with meds x 1 mo, recent discharge from [facility] and had been started on latuda and lithium. Pt reports stopping meds due to side effects. He is ambivalent about starting medication but is willing to trial zyprexa. Pt has long hx of impulsive behaviors, agitation, and mood lability. Will start zyprexa 10 mg QHS to target psychotic sx. Pt's father insists pt has had sensitivity and adverse responses to past med trials. 02/15- increase olanzapine to 10mg po BID 02/16- continue olanzapine 10mg po BID. pt continues with [facility], to starve self to as his david. thinks he hears God's voice. denies any plan or intent to hurt self. 02/18/31 Continue with plan 02/19/21 add zyprexa 2.5 mg at noon daily (will make small adjustments up due to father's concern of side effects/sensitivities per record) 02/20/21 continue with current treatmen plan 02/21- increase olanzapine to 20mg po qhs and 5 mg po daily. less CAH, but continues to hear voices. No SI/HI. 02/24- switch to risperidone 2mg po qhs. stop olanzapine. 02/25 continue risperidone, less cAH, less anxious/less fearful, brighter, non labile affect. No SI/HI. Monitor response to medications. Monitor for safety in the milieu. Discharge on stabilization. Patient seen. Chart reviewed. Discussed with team. Obtain collateral contact info?as needed I spent minutes with the patient and/or on the patient floor today, greater than?50% of which was spent counseling/coordinating care. Reason for contiued inpatient stay Substantial Risk for: harm to self
[2021-02-26] MEDS: Acetaminophen 325 MG TABLET 650 MG PO (13:32)
[2021-02-26] MEDS: risperiDONE 3 MG TABLET PO (20:11)
[2021-02-26 20:16] VITALS: BP 126/74; PULSE 82; RESP 17; TEMP 36.4; O2SAT 97
[2021-02-27 06:00] VITALS: BP 101/53; PULSE 80; RESP 18; TEMP 36.4; O2SAT 97
--- NOTE | 2021-02-27 12:46 | HO.PSYCHPN ---
Subjective Subjective Date of Service: 02/27/21 Reason For Visit: depression, SI Subjective Notes: Conditional Voluntary Interim History: Pt reports decreased CAH, but continues to hear voices. He reports feeling less sedated with risperidone. No Side effects, including dizziness or EPS. He reports sleeping well although last night reports having nightmare, waking up. He denies SI/HI. Visible going to groups, social with peers. NO behavioral concerns. Review of Systems Review of Systems Yes all other systems are reviewed and are negative Mental Status Exam Mental Status Exam Narrative: Pt is alert and oriented. Pt hygiene is improved, casually groomed, in NAD. Good eye contact, more attentive. No Tics or Tremors. No abnormal involuntary movements. Pt is calm, less tortured by voices. Non-pressured speech, spontaneous, soft tone, less delayed rate in response. Mood is ?better,? affect constricted but brighter, less anxious and less fearful. Currently denies SI, denies SIB. Denies HI upon inquiry. continues to endorse command AH/VH and anabaptism preoccupation, paranoid delusional thought content but denies any plan or intent to hurt self. Cognitive/memory problems secondary to psychiatric symptoms. Insight/ Judgment improving. Diagnostics Vital Signs (24Hr): Vital Signs - 24 hr 02/26/21 20:16 02/27/21 06:00 Temperature 97.5 F 97.6 F Pulse Rate 82 80 Respiratory Rate 17 18 Blood Pressure 126/74 101/53 L Pulse Oximetry 97 97 BMI result Body Mass Index 26.9 Labs Results: 02/10/21 21:47 02/10/21 21:47 Medications Medications Current Medications Acetaminophen (Acetaminophen 325 Mg Tablet) 650 mg PO Q6H PRN PRN Reason: Headache/Pain Mild Scale (1-3) Last Admin: 02/26/21 13:32 Dose: 650 mg Documented by: Al Hydroxide/Mg Hydroxide (Magnesium Hydrox/Alum Hydrox 30 Ml Oral.Susp) 30 ml PO Q6H PRN PRN Reason: Heartburn/Nausea Benzocaine (Throat Lozenge, Medicated Lozenge) 1 lozenge MUCOUS MEM Q2H PRN PRN Reason: Sore Throat Benztropine Mesylate (Benztropine Mesylate 1 Mg Tablet) 1 mg PO Q8H PRN PRN Reason: EPS/dystonia Last Admin: 02/21/21 09:27 Dose: 1 mg Documented by: Hydroxyzine HCl (Hydroxyzine Hcl 25 Mg Tablet) 25 mg PO Q6H PRN PRN Reason: Anxiety Last Admin: 02/26/21 04:07 Dose: 25 mg Documented by: Lorazepam (Lorazepam 1 Mg Tablet) 1 mg PO Q6H PRN PRN Reason: Anxiety Magnesium Hydroxide (Milk Of Magnesia 30 Ml Oral.Susp) 30 ml PO DAILY PRN PRN Reason: Constipation Risperidone (Risperidone 3 Mg Tablet) 3 mg PO BEDTIME TABITHA Last Admin: 02/26/21 20:11 Dose: 3 mg Documented by: Trazodone HCl (Trazodone Hcl 50 Mg Tablet) 50 mg PO BEDTIME PRN PRN Reason: Insomnia Last Admin: 02/19/21 20:11 Dose: 50 mg Documented by: Allergies Allergies Allergy/AdvReac Type Severity Reaction Status Date / Time No Known Allergies Allergy Verified 02/10/21 20:10 Assessment & Plan Assessment & Plan (1) Schizoaffective disorder, bipolar type: Status: Acute Code(s): F25.0 - Schizoaffective disorder, bipolar type Assessment and Plan: Pt is a 25 y.o. male who carries a dx of schizoaffective disorder, cannabis use disorder. He presents with sx of A/VH, delusional thought content, SI but unable to articulate a plan, poor sleep, poor appetite, and decompensation in self care. Pt has been non-adherent with meds x 1 mo, recent discharge from [facility] and had been started on latuda and lithium. Pt reports stopping meds due to side effects. He is ambivalent about starting medication but is willing to trial zyprexa. Pt has long hx of impulsive behaviors, agitation, and mood lability. Will start zyprexa 10 mg QHS to target psychotic sx. Pt's father insists pt has had sensitivity and adverse responses to past med trials. 02/15- increase olanzapine to 10mg po BID 02/16- continue olanzapine 10mg po BID. pt continues with [facility], to starve self to as his david. thinks he hears God's voice. denies any plan or intent to hurt self. 02/18/31 Continue with plan 02/19/21 add zyprexa 2.5 mg at noon daily (will make small adjustments up due to father's concern of side effects/sensitivities per record) 02/20/21 continue with current treatmen plan 02/21- increase olanzapine to 20mg po qhs and 5 mg po daily. less CAH, but continues to hear voices. No SI/HI. 02/24- switch to risperidone 2mg po qhs. stop olanzapine. 02/25 continue risperidone, less cAH, less anxious/less fearful, brighter, non labile affect. No SI/HI. Monitor response to medications. Monitor for safety in the milieu. Discharge on stabilization. Patient seen. Chart reviewed. Discussed with team. Obtain collateral contact info?as needed I spent minutes with the patient and/or on the patient floor today, greater than?50% of which was spent counseling/coordinating care. Reason for contiued inpatient stay Substantial Risk for: harm to self
[2021-02-27 18:00] VITALS: BP 120/66; PULSE 97; RESP 18; TEMP 36.3; O2SAT 97
[2021-02-27] MEDS: LORazepam 1 MG TABLET PO (20:26)
[2021-02-27] MEDS: risperiDONE 3 MG TABLET PO (20:26)
[2021-02-27] MEDS: traZODone HCL 50 MG TABLET PO (20:26)
[2021-02-27] MEDS: hydrOXYzine HCL 25 MG TABLET PO (20:26)
[2021-02-28 06:00] VITALS: BP 128/66; PULSE 88; RESP 16; TEMP 36.4; O2SAT 97
--- NOTE | 2021-02-28 10:41 | HO.PSYCHPN ---
Subjective Subjective Date of Service: 02/28/21 Reason For Visit: depression, SI Subjective Notes: Conditional Voluntary Interim History: Pt reports not hearing voices this morning, in general less frequency and intensity. Pt with brighter affect. He reports last night again had nightmares but does not want to take medications for this. He reports feeling less sedated with risperidone. No Side effects, including dizziness or EPS. He denies SI/HI. Visible going to groups, social with peers. NO behavioral concerns. NO EPS on exam. Medication Compliance: Yes Side effects from medications: No Review of Systems Review of Systems Yes all other systems are reviewed and are negative Mental Status Exam Mental Status Exam Narrative: Pt is alert and oriented. Pt hygiene is improved, casually groomed, in NAD. Good eye contact, more attentive. No Tics or Tremors. No abnormal involuntary movements. Pt is calm, less tortured by voices. Non-pressured speech, spontaneous, soft tone, less delayed rate in response. Mood is ?better,? affect constricted but brighter, less anxious and less fearful. Currently denies SI, denies SIB. Denies HI upon inquiry. continues to endorse command AH/VH and anglican preoccupation, paranoid delusional thought content but denies any plan or intent to hurt self. Cognitive/memory problems secondary to psychiatric symptoms. Insight/ Judgment improving. Diagnostics Vital Signs (24Hr): Vital Signs - 24 hr 02/27/21 18:00 02/28/21 06:00 Temperature 97.3 F 97.5 F Pulse Rate 97 88 Respiratory Rate 18 16 Blood Pressure 120/66 128/66 Pulse Oximetry 97 97 BMI result Body Mass Index 26.9 Labs Results: 02/10/21 21:47 02/10/21 21:47 Medications Medications Current Medications Acetaminophen (Acetaminophen 325 Mg Tablet) 650 mg PO Q6H PRN PRN Reason: Headache/Pain Mild Scale (1-3) Last Admin: 02/26/21 13:32 Dose: 650 mg Documented by: Al Hydroxide/Mg Hydroxide (Magnesium Hydrox/Alum Hydrox 30 Ml Oral.Susp) 30 ml PO Q6H PRN PRN Reason: Heartburn/Nausea Benzocaine (Throat Lozenge, Medicated Lozenge) 1 lozenge MUCOUS MEM Q2H PRN PRN Reason: Sore Throat Benztropine Mesylate (Benztropine Mesylate 1 Mg Tablet) 1 mg PO Q8H PRN PRN Reason: EPS/dystonia Last Admin: 02/21/21 09:27 Dose: 1 mg Documented by: Hydroxyzine HCl (Hydroxyzine Hcl 25 Mg Tablet) 25 mg PO Q6H PRN PRN Reason: Anxiety Last Admin: 02/27/21 20:26 Dose: 25 mg Documented by: Lorazepam (Lorazepam 1 Mg Tablet) 1 mg PO Q6H PRN PRN Reason: Anxiety Last Admin: 02/27/21 20:26 Dose: 1 mg Documented by: Magnesium Hydroxide (Milk Of Magnesia 30 Ml Oral.Susp) 30 ml PO DAILY PRN PRN Reason: Constipation Risperidone (Risperidone 3 Mg Tablet) 3 mg PO BEDTIME TABITHA Last Admin: 02/27/21 20:26 Dose: 3 mg Documented by: Trazodone HCl (Trazodone Hcl 50 Mg Tablet) 50 mg PO BEDTIME PRN PRN Reason: Insomnia Last Admin: 02/27/21 20:26 Dose: 50 mg Documented by: Allergies Allergies Allergy/AdvReac Type Severity Reaction Status Date / Time No Known Allergies Allergy Verified 02/10/21 20:10 Assessment & Plan Assessment & Plan (1) Schizoaffective disorder, bipolar type: Status: Acute Code(s): F25.0 - Schizoaffective disorder, bipolar type Assessment and Plan: Pt is a 25 y.o. male who carries a dx of schizoaffective disorder, cannabis use disorder. He presents with sx of A/VH, delusional thought content, SI but unable to articulate a plan, poor sleep, poor appetite, and decompensation in self care. Pt has been non-adherent with meds x 1 mo, recent discharge from [facility] and had been started on latuda and lithium. Pt reports stopping meds due to side effects. He is ambivalent about starting medication but is willing to trial zyprexa. Pt has long hx of impulsive behaviors, agitation, and mood lability. Will start zyprexa 10 mg QHS to target psychotic sx. Pt's father insists pt has had sensitivity and adverse responses to past med trials. 02/15- increase olanzapine to 10mg po BID 02/16- continue olanzapine 10mg po BID. pt continues with [facility], to starve self to as his david. thinks he hears God's voice. denies any plan or intent to hurt self. 02/18/31 Continue with plan 02/19/21 add zyprexa 2.5 mg at noon daily (will make small adjustments up due to father's concern of side effects/sensitivities per record) 02/20/21 continue with current treatmen plan 02/21- increase olanzapine to 20mg po qhs and 5 mg po daily. less CAH, but continues to hear voices. No SI/HI. 02/24- switch to risperidone 2mg po qhs. stop olanzapine. 02/25 continue risperidone, less cAH, less anxious/less fearful, brighter, non labile affect. No SI/HI. Monitor response to medications. Monitor for safety in the milieu. Discharge on stabilization. Patient seen. Chart reviewed. Discussed with team. Obtain collateral contact info?as needed I spent minutes with the patient and/or on the patient floor today, greater than?50% of which was spent counseling/coordinating care. Reason for contiued inpatient stay Substantial Risk for: stable for discharge
[2021-02-28 16:46] VITALS: BP 126/67; PULSE 88
[2021-02-28] MEDS: risperiDONE 3 MG TABLET PO (20:18)
[2021-03-01 06:00] VITALS: BP 132/72; PULSE 110; RESP 18; TEMP 36.3; O2SAT 94
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
== END 2021-03-01 11:30 | disposition home or self-care (01) | DRG 750 ==
LOC: HO.ED 02-11 01:28 → HO.PM5 02-11 10:31
PROVIDERS: Nurse Practitioner Family; Registered Nurse; Admitting Provider Psychiatry & Neurology Psychiatry; Emergency Provider Internal Medicine; Visit Provider Social Worker
DX: F25.0 Schizoaffective disorder, bipolar type (principal); R45.851 Suicidal ideations; F12.159 Cannabis abuse with psychotic disorder, unspecified; Z20.822 Contact with and (suspected) exposure to COVID-19; Z79.899 Other long term (current) drug therapy
CPT/HCPCS: 36415; 80048; 80061; 80076; 80143; 80178; 80179; 83036; 85025; 87635; 87651; 93005; 99285; J2060

== ENCOUNTER 2021-06-14 20:21 | Emergency (ER) | payer BC, MEDICARE, MEDICAID, SELFPAY ==
--- NOTE | 2021-06-14 | ECG_ITS ---
Test Reason : meclearance Blood Pressure : / mmHG Vent. Rate : 061 BPM Atrial Rate : 061 BPM P-R Int : 182 ms QRS Dur : 102 ms QT Int : 394 ms P-R-T Axes : 000 146 030 degrees QTc Int : 396 ms Normal sinus rhythm Right axis deviation Borderline ECG When compared with ECG of 11-FEB-2021 10:22, No significant change was found Referred By: Pao Porter Electronically Signed By:ALEXANDRE MARTINEZ
--- NOTE | 2021-06-14 | ECG_ITS ---
Test Reason : meclearance Blood Pressure : / mmHG Vent. Rate : 062 BPM Atrial Rate : 062 BPM P-R Int : 170 ms QRS Dur : 104 ms QT Int : 400 ms P-R-T Axes : 064 061 034 degrees QTc Int : 406 ms Normal sinus rhythm Normal ECG When compared with ECG of 14-JUN-2021 21:25, QRS axis Shifted left Nonspecific T wave abnormality, improved in Inferior leads Referred By: Rosalia Shafer Electronically Signed By:ALEXANDRE MARTINEZ
[2021-06-14 20:32] VITALS: BP 142/85; PULSE 86; RESP 19; TEMP 36.3; O2SAT 95; BMI 32.5
[2021-06-14 21:16] LABS: MANUAL DIFF FLAG NO
[2021-06-14 21:17] LABS: Basophils Percent Auto 0.7 % (0-2); Eosinophils Percent Auto 0.5 % (0-4); Hemoglobin 16.3 g/dl (14.0-18.0); Imm Gran Abs Auto 0.01 X10*3/uL (0.00-0.03); Imm Gran Pct Auto 0.2 % (0.0-0.4); Lymphocytes Absolute Auto 1.9 X10*3/uL (1.2-4.9); Lymphocytes Percent Auto 31.1 % (20-40); Mean Corpuscular HGB Conc 35.4 g/dl (31.0-36.0); Mean Corpuscular Hemoglobin 30.6 pg (27.0-33.0); Mean Corpuscular Volume 86.5 fL (80.0-98.0); Mean Platelet Volume 9.3 fL (9.4-12.4); Monocytes Absolute Auto 0.3 X10*3/uL (0.1-1.2); Monocytes Percent Auto 5.5 % (2-11); Neutrophils Absolute Auto 3.8 x10*3/uL (2.0-8.3); Platelet Count 257 X10*3/uL (160-400); Red Blood Count 5.32 X10*6/uL (4.60-5.80); White Blood Count 6.1 X10*3/uL (4.8-10.8)
[2021-06-14 21:29] LABS: Ethanol < 10 mg/dL
--- NOTE | 2021-06-14 21:29 | ED.PSYCH ---
HPI - Psych General Chief Complaint: Psychiatric Symptoms <Rosalia Shafer MD - Last Filed: 06/14/21 21:32> Stated Complaint: Crisis <Rosalia Shafer MD - Last Filed: 06/14/21 21:32> Time Seen by Provider: 06/14/21 21:17 <Rosalia Shafer MD - Last Filed: 06/14/21 21:32> Source: patient <Rosalia Shafer MD - Last Filed: 06/14/21 21:32> Mode of arrival: ambulatory <Rosalia Shafer MD - Last Filed: 06/14/21 21:32> Limitations: no limitations <Rosalia Shafer MD - Last Filed: 06/14/21 21:32> History of Present Illness HPI Narrative: Patient comes to emergency room complaining of feeling delusional, like people are targeting him. Patient states that he takes Latuda and is compliant with his medication. Patient states that usually he gets delusional before his schizophrenia gets ?really bad?. Patient states he wanted to come to the emergency room before this happens. Patient has no other symptoms. <Rosalia Shafer MD - Last Filed: 06/14/21 21:32> Related Data Home Medications: Home Medications Medication Instructions Recorded Confirmed lurasidone 80 mg tablet (Latuda) 1 tab PO BEDTIME 06/14/21 06/14/21 <Rosalia Shafer MD - Last Filed: 06/14/21 21:32> Allergies/Adverse Reactions: Allergies Allergy/AdvReac Type Severity Reaction Status Date / Time No Known Allergies Allergy Verified 06/14/21 20:39 <Rosalia Shafer MD - Last Filed: 06/14/21 21:32> Review of Systems Review of Systems: Constitutional : No Weight loss, No Fever, No Chills, No Night Sweats, No Fatigue, No Malaise ENT/Mouth : No Hearing loss, No Ear Pain, No Nasal Congestion, No Sinus Pain, No Hoarseness, No sore throat, No Rhinorrhea, No Swallowing Difficulty Eyes: No Eye Pain, No Swelling, No Redness, No Foreign Body, No Discharge, No Vision Changes Cardiovascular : No Chest Pain, No SOB, No Dyspnea on Exertion, No Orthopnea, No Edema, No Palpitations Respiratory : No Cough, No Sputum, No Wheezing, No Smoke Exposure, No Dyspnea Gastrointestinal : No Nausea, No Vomiting, No Diarrhea, No Constipation, No abdominal Pain, No Hematochezia, No Melena Genitourinary : no irregular bleeding, No Dysuria, No Urinary Frequency, No Hematuria, No Urinary Incontinence, No Urgency, No Flank Pain, No Urinary Flow Changes, No Hesitancy Musculoskeletal : No joint pain, No Myalgias, No Joint Swelling Skin : No Skin Lesions, No rash Neuro : No Weakness, No Numbness, No Paresthesias, No Loss of Consciousness, No Dizziness, No Headache Psych : No Anxiety/Panic, No Depression, No SI/HI, complaining of feeling delusional Heme/Lymph: No Bruising, No Bleeding,No Lymphadenopathy Endocrine : No Polyuria, No Polydipsia, No Temperature Intolerance <Rosalia Shafer MD - Last Filed: 06/14/21 21:32> [facility] Past Medical History Medical History: Medical History Schizo affective schizophrenia <Rosalia Shafer MD - Last Filed: 06/14/21 21:32> Social History Social History: Social History Household Members: None Housing: Apartment Do you presently have visiting nurse or other home services: No Patient Tobacco Use Status: Never used Tobacco Advance Directives: No Advance Directives Information Provided: Yes Healthcare Proxy: No Guardian: No service: No Sexual orientation: Lesbian/Gale/Homosexual <Rosalia Shafer MD - Last Filed: 06/14/21 21:32> Physical Exam Vital Signs: Vital Signs: Last Vital Signs Temp 97.3 F 06/14/21 20:32 Pulse 86 06/14/21 20:32 Resp 19 06/14/21 20:32 BP 142/85 H 06/14/21 20:32 Pulse Ox 95 06/14/21 20:32 BMI result Body Mass Index 32.5 <Rosalia Shafer MD - Last Filed: 06/14/21 21:32> Vital Signs: Last Vital Signs Temp 97.3 F 06/14/21 20:32 Pulse 86 06/14/21 20:32 Resp 19 06/14/21 20:32 BP 142/85 H 06/14/21 20:32 Pulse Ox 95 04/26/22 20:32 BMI result Body Mass Index 32.5 <Pao Porter NP - Last Filed: 06/15/21 00:34> Const: Other: Appearance: Alert. Oriented X3. No acute distress. Eyes: Pupils equal, round and reactive to light. ENT: Pharynx normal. Neck: Normal inspection. Neck supple. No lymph nodes noted. No crepitus CVS: Normal heart rate and rhythm. Pulses normal. Normal S1 and S2 Respiratory: No respiratory distress. Breath sounds normal. No Wheezing. No rales Abdomen: Soft and nontender. No rigidity. No distention. Skin: Skin warm and dry. Normal skin color. Normal skin turgor. Extremities: No lower extremity edema. No Lacerations. No Rash Neuro: Oriented X 3. No motor deficit. No sensory deficit. Moving all extremities. No slurred speech. CN 2 through 12 grossly intact Psych: calm, cooperative, normal affect, coherent <Rosalia Shafer MD - Last Filed: 06/14/21 21:32> Course Course Course Narrative: Follow labs are pending, care consult pending. Physician observation started at 21:30 <Rosalia Shafer MD - Last Filed: 06/14/21 21:32> Follow labs are pending, care consult pending. Physician observation started at 21:30 23:45 care team consult complete. Plan of care is to [facility]. Patient is not suicidal or homicidal at this time. detention staff have accepted this patient back to his home. Will follow up with outpatient psychiatry as recommended. <Pao Porter NP - Last Filed: 06/15/21 00:34> MDM - Psych Lab Data Result diagrams: : 06/14/21 21:11 06/14/21 21:11 <Rosalia Shafer MD - Last Filed: 06/14/21 21:32> Labs: Lab Results 06/14/21 06/14/21 06/14/21 Range/Units 20:53 21:11 21:11 WBC 6.1 (4.8-10.8) X10*3/uL RBC 5.32 (4.60-5.80) X10*6/uL Hgb 16.3 (14.0-18.0) g/dl Hct 46.0 (42.0-52.0) % MCV 86.5 (80.0-98.0) fL MCH 30.6 (27.0-33.0) pg MCHC 35.4 (31.0-36.0) g/dl RDW 12.0 (11.0-16.0) % Plt Count 257 (160-400) X10*3/uL MPV 9.3 L (9.4-12.4) fL Immature Gran % (Auto) 0.2 (0.0-0.4) % Neut % (Auto) 62.0 (45-73) % Lymph % (Auto) 31.1 (20-40) % Wayne % (Auto) 5.5 (2-11) % Eos % (Auto) 0.5 (0-4) % Baso % (Auto) 0.7 (0-2) % Lymph # (Auto) 1.9 (1.2-4.9) X10*3/uL Wayne # (Auto) 0.3 (0.1-1.2) X10*3/uL Eos # (Auto) 0.0 (0.0-0.4) X10*3/uL Baso # (Auto) 0.0 (0.0-0.2) X10*3/uL Abs Immat Gran (auto) 0.01 (0.00-0.03) X10*3/uL Absolute Neuts (auto) 3.8 (2.0-8.3) x10*3/uL Absolute Nucleated RBC 0.000 (0.0-0.012) X10*3/uL Nucleated RBC % (auto) 0.0 (0.0-0.2) /100WBC Sodium 141 (135-145) mmol/L Potassium 4.6 (3.3-5.1) mmol/L Chloride 104 (96-108) mmol/L Carbon Dioxide 30 H (22-29) mmol/L Anion Gap 12 (12-20) BUN 12 (9-16) mg/dL Creatinine 1.29 (0.5-1.4) mg/dL Estim Creat Clear Calc 99.8 Estimated GFR > 60 Random Glucose 106 (60-115) mg/dL Calcium 10.3 H (8.4-10.2) mg/dL Salicylates < 5.0 L (15-30) mg/dL Urine Opiates Screen (Not Detect) Urine Fentanyl Screen (Not Detect) Acetaminophen < 1 (<30) mcg/mL Ur Barbiturates Screen (Not Detect) Ur Phencyclidine Scrn (Not Detect) Ur Amphetamines Screen (Not Detect) U Benzodiazepines Scrn (Not Detect) Urine Cocaine Screen (Not Detect) U Marijuana (THC) Screen (Not Detect) Ethyl Alcohol mg/dL COVID-19 (FILIBERTO) Negative (Negative) COVID-19 Clin Com See Note 06/14/21 06/14/21 Range/Units 21:11 22:11 WBC (4.8-10.8) X10*3/uL RBC (4.60-5.80) X10*6/uL Hgb (14.0-18.0) g/dl Hct (42.0-52.0) % MCV (80.0-98.0) fL MCH (27.0-33.0) pg MCHC (31.0-36.0) g/dl RDW (11.0-16.0) % Plt Count (160-400) X10*3/uL MPV (9.4-12.4) fL Immature Gran % (Auto) (0.0-0.4) % Neut % (Auto) (45-73) % Lymph % (Auto) (20-40) % Wayne % (Auto) (2-11) % Eos % (Auto) (0-4) % Baso % (Auto) (0-2) % Lymph # (Auto) (1.2-4.9) X10*3/uL Wayne # (Auto) (0.1-1.2) X10*3/uL Eos # (Auto) (0.0-0.4) X10*3/uL Baso # (Auto) (0.0-0.2) X10*3/uL Abs Immat Gran (auto) (0.00-0.03) X10*3/uL Absolute Neuts (auto) (2.0-8.3) x10*3/uL Absolute Nucleated RBC (0.0-0.012) X10*3/uL Nucleated RBC % (auto) (0.0-0.2) /100WBC Sodium (135-145) mmol/L Potassium (3.3-5.1) mmol/L Chloride (96-108) mmol/L Carbon Dioxide (22-29) mmol/L Anion Gap (12-20) BUN (9-16) mg/dL Creatinine (0.5-1.4) mg/dL Estim Creat Clear Calc Estimated GFR Random Glucose (60-115) mg/dL Calcium (8.4-10.2) mg/dL Salicylates (15-30) mg/dL Urine Opiates Screen Not Detected (Not Detect) Urine Fentanyl Screen Not Detected (Not Detect) Acetaminophen (<30) mcg/mL Ur Barbiturates Screen Not Detected (Not Detect) Ur Phencyclidine Scrn Not Detected (Not Detect) Ur Amphetamines Screen Not Detected (Not Detect) U Benzodiazepines Scrn Not Detected (Not Detect) Urine Cocaine Screen Not Detected (Not Detect) U Marijuana (THC) Screen Not Detected (Not Detect) Ethyl Alcohol < 10 mg/dL COVID-19 (FILIBERTO) (Negative) COVID-19 Clin Com <Rosalia Shafer MD - Last Filed: 06/14/21 21:32> Lab Results 06/14/21 06/14/21 06/14/21 Range/Units 20:53 21:11 21:11 WBC 6.1 (4.8-10.8) X10*3/uL RBC 5.32 (4.60-5.80) X10*6/uL Hgb 16.3 (14.0-18.0) g/dl Hct 46.0 (42.0-52.0) % MCV 86.5 (80.0-98.0) fL MCH 30.6 (27.0-33.0) pg MCHC 35.4 (31.0-36.0) g/dl RDW 12.0 (11.0-16.0) % Plt Count 257 (160-400) X10*3/uL MPV 9.3 L (9.4-12.4) fL Immature Gran % (Auto) 0.2 (0.0-0.4) % Neut % (Auto) 62.0 (45-73) % Lymph % (Auto) 31.1 (20-40) % Wayne % (Auto) 5.5 (2-11) % Eos % (Auto) 0.5 (0-4) % Baso % (Auto) 0.7 (0-2) % Lymph # (Auto) 1.9 (1.2-4.9) X10*3/uL Wayne # (Auto) 0.3 (0.1-1.2) X10*3/uL Eos # (Auto) 0.0 (0.0-0.4) X10*3/uL Baso # (Auto) 0.0 (0.0-0.2) X10*3/uL Abs Immat Gran (auto) 0.01 (0.00-0.03) X10*3/uL Absolute Neuts (auto) 3.8 (2.0-8.3) x10*3/uL Absolute Nucleated RBC 0.000 (0.0-0.012) X10*3/uL Nucleated RBC % (auto) 0.0 (0.0-0.2) /100WBC Sodium 141 (135-145) mmol/L Potassium 4.6 (3.3-5.1) mmol/L Chloride 104 (96-108) mmol/L Carbon Dioxide 30 H (22-29) mmol/L Anion Gap 12 (12-20) BUN 12 (9-16) mg/dL Creatinine 1.29 (0.5-1.4) mg/dL Estim Creat Clear Calc 99.8 Estimated GFR > 60 Random Glucose 106 (60-115) mg/dL Calcium 10.3 H (8.4-10.2) mg/dL Salicylates < 5.0 L (15-30) mg/dL Urine Opiates Screen (Not Detect) Urine Fentanyl Screen (Not Detect) Acetaminophen < 1 (<30) mcg/mL Ur Barbiturates Screen (Not Detect) Ur Phencyclidine Scrn (Not Detect) Ur Amphetamines Screen (Not Detect) U Benzodiazepines Scrn (Not Detect) Urine Cocaine Screen (Not Detect) U Marijuana (THC) Screen (Not Detect) Ethyl Alcohol mg/dL COVID-19 (FILIBERTO) Negative (Negative) COVID-19 Clin Com See Note 06/14/21 06/14/21 Range/Units 21:11 22:11 WBC (4.8-10.8) X10*3/uL RBC (4.60-5.80) X10*6/uL Hgb (14.0-18.0) g/dl Hct (42.0-52.0) % MCV (80.0-98.0) fL MCH (27.0-33.0) pg MCHC (31.0-36.0) g/dl RDW (11.0-16.0) % Plt Count (160-400) X10*3/uL MPV (9.4-12.4) fL Immature Gran % (Auto) (0.0-0.4) % Neut % (Auto) (45-73) % Lymph % (Auto) (20-40) % Wayne % (Auto) (2-11) % Eos % (Auto) (0-4) % Baso % (Auto) (0-2) % Lymph # (Auto) (1.2-4.9) X10*3/uL Wayne # (Auto) (0.1-1.2) X10*3/uL Eos # (Auto) (0.0-0.4) X10*3/uL Baso # (Auto) (0.0-0.2) X10*3/uL Abs Immat Gran (auto) (0.00-0.03) X10*3/uL Absolute Neuts (auto) (2.0-8.3) x10*3/uL Absolute Nucleated RBC (0.0-0.012) X10*3/uL Nucleated RBC % (auto) (0.0-0.2) /100WBC Sodium (135-145) mmol/L Potassium (3.3-5.1) mmol/L Chloride (96-108) mmol/L Carbon Dioxide (22-29) mmol/L Anion Gap (12-20) BUN (9-16) mg/dL Creatinine (0.5-1.4) mg/dL Estim Creat Clear Calc Estimated GFR Random Glucose (60-115) mg/dL Calcium (8.4-10.2) mg/dL Salicylates (15-30) mg/dL Urine Opiates Screen Not Detected (Not Detect) Urine Fentanyl Screen Not Detected (Not Detect) Acetaminophen (<30) mcg/mL Ur Barbiturates Screen Not Detected (Not Detect) Ur Phencyclidine Scrn Not Detected (Not Detect) Ur Amphetamines Screen Not Detected (Not Detect) U Benzodiazepines Scrn Not Detected (Not Detect) Urine Cocaine Screen Not Detected (Not Detect) U Marijuana (THC) Screen Not Detected (Not Detect) Ethyl Alcohol < 10 mg/dL COVID-19 (FILIBERTO) (Negative) COVID-19 Clin Com <Pao Porter NP - Last Filed: 06/15/21 00:34> Discharge Plan Discharge Clinical Impression: Schizoaffective disorder, bipolar type <Rosalia Shafer MD - Last Filed: 06/14/21 21:32> Patient Disposition: Home, Self-Care <Rosalia Shafer MD - Last Filed: 06/14/21 21:32> Instructions: Schizoaffective Disorder (ED) <Rosalia Shafer MD - Last Filed: 06/14/21 21:32> Additional Instructions: Follow-up with outpatient psychiatry as scheduled. Thank you for choosing this emergency department for evaluation. Please follow-up with primary care physician as needed. Return to the emergency department for any new, concerning, or worsening symptoms. <Rosalia Shafer MD - Last Filed: 06/14/21 21:32> Prescriptions: No Action Latuda 80 mg tablet 1 tab PO BEDTIME 0RF <Rosalia Shafer MD - Last Filed: 06/14/21 21:32> Interventions: ED Discharge Assessment Last Done: 06/15/21 00:23 <Rosalia Shafer MD - Last Filed: 06/14/21 21:32> Discharge Date/Time: 06/15/21 00:32 <Rosalia Shafer MD - Last Filed: 06/14/21 21:32>
[2021-06-14 21:33] LABS: Anion Gap 12 (12-20); Blood Urea Nitrogen 12 mg/dL (9-16); Calcium 10.3 mg/dL (8.4-10.2); Carbon Dioxide 30 mmol/L (22-29); Chloride 104 mmol/L (96-108); Creatinine Clr Calc Pharmacy 99.8; Estimated Glomerular Filt Rate > 60; Glucose Random 106 mg/dL (60-115); Potassium 4.6 mmol/L (3.3-5.1); Sodium 141 mmol/L (135-145)
[2021-06-14 21:45] LABS: Acetaminophen LAB < 1 mcg/mL (<30); Salicylate < 5.0 mg/dL (15-30)
[2021-06-14 22:32] LABS: Amphetamine Screen Urine Not Detected (Not Detect); Barbiturates, Urine Not Detected (Not Detect); Benzodiazepines Screen Urine Not Detected (Not Detect); Cannabinoid Screen Urine Not Detected (Not Detect); Cocaine Screen Urine Not Detected (Not Detect); Fentanyl, urine Not Detected (Not Detect); Opiate Screen Urine Not Detected (Not Detect); Phencyclidine Screen Urine Not Detected (Not Detect)
[2021-06-14 23:03] LABS: COVID-19 Test Negative (Negative); IDNOW Serial# 08D9AD1C
== END 2021-06-15 00:32 | disposition home or self-care (01) ==
PROVIDERS: Nurse Practitioner Family; Emergency Provider Emergency Medicine
DX: F25.0 Schizoaffective disorder, bipolar type (principal); Z79.899 Other long term (current) drug therapy; Z20.822 Contact with and (suspected) exposure to COVID-19
CPT/HCPCS: 36415; 80048; 80143; 80179; 80307; 82077; 85025; 87635; 93005; 99283; 99284

== ENCOUNTER 2021-07-16 22:16 | Emergency (ER) | payer BC, MEDICARE, MEDICAID, SELFPAY ==
[2021-07-16 22:22] VITALS: BP 116/70; PULSE 87; RESP 18; TEMP 36.7; O2SAT 97; BMI 29.5
--- NOTE | 2021-07-16 22:47 | ED_ITS ---
HPI - Psych General Chief Complaint: Psychiatric Symptoms Stated Complaint: crisis, manic Time Seen by Provider: 07/16/21 22:47 Source: patient Mode of arrival: ambulatory Limitations: no limitations History of Present Illness HPI Narrative: 26-year-old male past medical history significant for schizoaffective schi zophrenia presenting to the emergency department with complaints of ?I feel manic ? and tells me he cant sit still x1 day. Patient tells me that he is also feeling slightly paranoid. He cannot tell me what has been triggering this. He denies visual, auditory and tactile hallucinations. He denies drugs, alcohol. He smokes 1 pack per day. Denies suicidal and homicidal ideation. Has been taking his medications as prescribed, he tells me he thinks his Latuda is causing involuntary muscle spasms. He has had previous psych admissions and is followed by outpatient providers in the community. Denies any medical complaints at this time MD complaint: anxiety Onset (ago): day(s) (1) Duration: constant History of same: Yes Relieving factors: none Exacerbating factors: none Associated psychiatric symptoms: none Associated symptoms: denies other symptoms Treatments prior to arrival: none Related Data Home Medications Medication Instructions Recorded Confirmed lurasidone 80 mg tablet (Latuda) 80 mg PO BEDTIME 07/16/21 07/16/21 Allergies Allergy/AdvReac Type Severity Reaction Status Date / Time No Known Allergies Allergy Verified 06/14/21 20:39 Review of Systems Review of Systems: Constitutional : No Fever, No Chills ENT/Mouth : No Ear Pain, No Nasal Congestion, No sore throat Eyes: No Eye Pain, No Swelling, No Redness Cardiovascular : No Chest Pain, No SOB Respiratory : No Cough, No Sputum, No Dyspnea Gastrointestinal : No Nausea, No Vomiting, No Diarrhea, No Hematochezia, No Melena Genitourinary : No Dysuria, No Urinary Frequency, No Hematuria Musculoskeletal : No Myalgias Skin : No Skin Lesions, No rash Neuro : No Weakness, No Numbness, No Paresthesias, No Dizziness, No Headache Psych : positive Anxiety, No Depression, No SI/HI All other systems reviewed and are negative Yes all other systems are reviewed and are negative PMFSH Past Medical History Attestation statement: The following information was validated with the patient. Source: old records reviewed and nursing notes reviewed Medical History Schizo affective schizophrenia Social History Social History Household Members: None Housing: Apartment Do you presently have visiting nurse or other home services: No Patient Tobacco Use Status: Never used Tobacco service: No Sexual orientation: Lesbian/Gale/Homosexual Physical Exam Vital Signs: Vital Signs: Last Vital Signs Temp 98.0 F 07/16/21 22:22 Pulse 87 07/16/21 22:22 Resp 18 07/16/21 22:22 BP 116/70 07/16/21 22:22 Pulse Ox 97 07/16/21 22:22 BMI result Body Mass Index 29.5 Vital signs stable Appearance: Alert.? Oriented X3.? No acute distress.? Head: Normocephalic, atraumatic, no step-offs or deformities + involuntary facial movments Eyes: Pupils equal, round and reactive to light.? Neck: Normal inspection.? Neck supple.? CVS: Normal heart rate and rhythm.? Pulses normal.? Respiratory: No respiratory distress.? Breath sounds normal.? Abdomen: Soft and nontender.? Skin: Skin warm and dry.? Normal skin color.? Normal skin turgor.? Extremities: No lower extremity edema.? No calf ttp. 5/5 strength to bilateral upper and lower extremities Neuro: Oriented X 3.? No motor deficit.? No sensory deficit. CN 2-12 intact Course Reevaluation(s) Reevaluation #1: Patient's CBC within normal limits. Chemistry with no acute electrolyte abnormalities requiring intervention. Patient's transaminases are noted to be elevated however he does not have pain to palpation of right upper quadrant or any part of the abdomen. Denies alcohol use to myself. Urine is clean. Toxicology negative. Ethanol negative. At this time patient will be placed in physician observation to allow more time to be evaluated by the behavioral health team. At time observation was started patient common cooperative no acute distress. Will continue to monitor. Time: 23:19 MDM - Psych MDM Narrative Medical decision making narrative: [id number] 26-year-old male presents feeling manic noted to all have extra pyramidal side effects likely secondary to Latuda patient is having involuntary facial movements, inability to sit still and slight resting tremors. Physical exam significant for extra pyramidal does symptoms. Lungs clear. Regular rate and rhythm. Abdomen soft nontender nondistended. Neuro exam nonfocal. Plan at this time is medical clearance. And evaluation by the behavioral health team Patient will be given 50 mg of p.o. Benadryl for extrapyramidal symptoms. Medical Records Attestation: I reviewed the patient's medical records. Lab Data Attestation: I reviewed the patient's lab results. Result diagrams: 07/16/21 22:35 07/16/21 22:35 Labs: Lab Results 07/16/21 07/16/21 07/16/21 Range/Units 22:35 22:35 22:35 WBC 7.1 (4.8-10.8) X10*3/uL RBC 4.92 (4.60-5.80) X10*6/uL Hgb 15.3 (14.0-18.0) g/dl Hct 42.4 (42.0-52.0) % MCV 86.2 (80.0-98.0) fL MCH 31.1 (27.0-33.0) pg MCHC 36.1 H (31.0-36.0) g/dl RDW 12.0 (11.0-16.0) % Plt Count 252 (160-400) X10*3/uL MPV 9.5 (9.4-12.4) fL Immature Gran % (Auto) 0.3 (0.0-0.4) % Neut % (Auto) 56.4 (45-73) % Lymph % (Auto) 37.7 (20-40) % [place] % (Auto) 4.5 (2-11) % Eos % (Auto) 0.7 (0-4) % Baso % (Auto) 0.4 (0-2) % Lymph # (Auto) 2.7 (1.2-4.9) X10*3/uL [place] # (Auto) 0.3 (0.1-1.2) X10*3/uL Eos # (Auto) 0.1 (0.0-0.4) X10*3/uL Baso # (Auto) 0.0 (0.0-0.2) X10*3/uL Abs Immat Gran (auto) 0.02 (0.00-0.03) X10*3/uL Absolute Neuts (auto) 4.0 (2.0-8.3) x10*3/uL Absolute Nucleated RBC 0.000 (0.0-0.012) X10*3/uL Nucleated RBC % (auto) 0.0 (0.0-0.2) /100WBC Sodium 138 (135-145) mmol/L Potassium 4.0 (3.3-5.1) mmol/L Chloride 106 (96-108) mmol/L Carbon Dioxide 25 (22-29) mmol/L Anion Gap 11 L (12-20) BUN 10 (9-16) mg/dL Creatinine 0.99 (0.5-1.4) mg/dL Estim Creat Clear Calc 134.8 Estimated GFR > 60 Random Glucose 128 H (60-115) mg/dL Calcium 9.6 D (8.4-10.2) mg/dL Total Bilirubin 0.6 (0.0-1.0) mg/dL AST 170 H (5-37) U/L ALT 74 H (0-40) U/L Alkaline Phosphatase 112 (39-117) U/L Total Protein 7.3 (6.5-8.0) g/dL Albumin 4.4 (3.5-5.0) g/dL Urine Color Urine Appearance Urine pH (5.0-8.0) Ur Specific [place] (1.005-1.025) Urine Protein (NEG-TRACE) MG/DL Urine Glucose (UA) (NEG) MG/DL Urine Ketones (NEG) MG/DL Urine Blood (NEG) Urine Nitrite (NEG) Ur Leukocyte Esterase (NEG) Urine Opiates Screen (Not Detect) Urine Fentanyl Screen (Not Detect) Ur Barbiturates Screen (Not Detect) Ur Phencyclidine Scrn (Not Detect) Ur Amphetamines Screen (Not Detect) U Benzodiazepines Scrn (Not Detect) Urine Cocaine Screen (Not Detect) U Marijuana (THC) Screen (Not Detect) Ethyl Alcohol < 10 mg/dL 07/16/21 07/16/21 Range/Units 22:35 22:35 WBC (4.8-10.8) X10*3/uL RBC (4.60-5.80) X10*6/uL Hgb (14.0-18.0) g/dl Hct (42.0-52.0) % MCV (80.0-98.0) fL MCH (27.0-33.0) pg MCHC (31.0-36.0) g/dl RDW (11.0-16.0) % Plt Count (160-400) X10*3/uL MPV (9.4-12.4) fL Immature Gran % (Auto) (0.0-0.4) % Neut % (Auto) (45-73) % Lymph % (Auto) (20-40) % [place] % (Auto) (2-11) % Eos % (Auto) (0-4) % Baso % (Auto) (0-2) % Lymph # (Auto) (1.2-4.9) X10*3/uL [place] # (Auto) (0.1-1.2) X10*3/uL Eos # (Auto) (0.0-0.4) X10*3/uL Baso # (Auto) (0.0-0.2) X10*3/uL Abs Immat Gran (auto) (0.00-0.03) X10*3/uL Absolute Neuts (auto) (2.0-8.3) x10*3/uL Absolute Nucleated RBC (0.0-0.012) X10*3/uL Nucleated RBC % (auto) (0.0-0.2) /100WBC Sodium (135-145) mmol/L Potassium (3.3-5.1) mmol/L Chloride (96-108) mmol/L Carbon Dioxide (22-29) mmol/L Anion Gap (12-20) BUN (9-16) mg/dL Creatinine (0.5-1.4) mg/dL Estim Creat Clear Calc Estimated GFR Random Glucose (60-115) mg/dL Calcium (8.4-10.2) mg/dL Total Bilirubin (0.0-1.0) mg/dL AST (5-37) U/L ALT (0-40) U/L Alkaline Phosphatase (39-117) U/L Total Protein (6.5-8.0) g/dL Albumin (3.5-5.0) g/dL Urine Color YELLOW Urine Appearance CLEAR Urine pH 7.0 (5.0-8.0) Ur Specific [place] 1.010 (1.005-1.025) Urine Protein NEG (NEG-TRACE) MG/DL Urine Glucose (UA) NEG (NEG) MG/DL Urine Ketones NEG (NEG) MG/DL Urine Blood NEG (NEG) Urine Nitrite NEG (NEG) Ur Leukocyte Esterase NEG (NEG) Urine Opiates Screen Not Detected (Not Detect) Urine Fentanyl Screen Not Detected (Not Detect) Ur Barbiturates Screen Not Detected (Not Detect) Ur Phencyclidine Scrn Not Detected (Not Detect) Ur Amphetamines Screen Not Detected (Not Detect) U Benzodiazepines Scrn Not Detected (Not Detect) Urine Cocaine Screen Not Detected (Not Detect) U Marijuana (THC) Screen Not Detected (Not Detect) Ethyl Alcohol mg/dL Critical Care Time Critical Care Time Critical Care Time: No Discharge Plan Discharge Clinical Impression: Extrapyramidal symptom, Paranoia Patient Disposition: Still a Patient Prescriptions: No Action Latuda 80 mg tablet 80 mg PO BEDTIME 0RF
[2021-07-16 22:53] LABS: MANUAL DIFF FLAG NO
[2021-07-16 22:55] LABS: Appearance Urine CLEAR; Basophils Percent Auto 0.4 % (0-2); Color Urine YELLOW; Eosinophils Absolute Auto 0.1 X10*3/uL (0.0-0.4); Eosinophils Percent Auto 0.7 % (0-4); Glucose Urine UA NEG (NEG); Hematocrit 42.4 % (42.0-52.0); Hemoglobin 15.3 g/dl (14.0-18.0); Imm Gran Abs Auto 0.02 X10*3/uL (0.00-0.03); Imm Gran Pct Auto 0.3 % (0.0-0.4); Leukocyte Esterase Urine NEG (NEG); Lymphocytes Absolute Auto 2.7 X10*3/uL (1.2-4.9); Lymphocytes Percent Auto 37.7 % (20-40); Mean Corpuscular HGB Conc 36.1 g/dl (31.0-36.0); Mean Corpuscular Hemoglobin 31.1 pg (27.0-33.0); Mean Corpuscular Volume 86.2 fL (80.0-98.0); Mean Platelet Volume 9.5 fL (9.4-12.4); Monocytes Absolute Auto 0.3 X10*3/uL (0.1-1.2); Monocytes Percent Auto 4.5 % (2-11); Neutrophils Percent Auto 56.4 % (45-73); Nitrite Urine NEG (NEG); Platelet Count 252 X10*3/uL (160-400); Red Blood Count 4.92 X10*6/uL (4.60-5.80); Urine Blood NEG (NEG); Urine Ketones NEG (NEG); Urine Protein NEG (NEG-TRACE); White Blood Count 7.1 X10*3/uL (4.8-10.8)
[2021-07-16 23:05] LABS: Ethanol < 10 mg/dL
[2021-07-16 23:09] LABS: Amphetamine Screen Urine Not Detected (Not Detect); Barbiturates, Urine Not Detected (Not Detect); Benzodiazepines Screen Urine Not Detected (Not Detect); Cannabinoid Screen Urine Not Detected (Not Detect); Cocaine Screen Urine Not Detected (Not Detect); Fentanyl, urine Not Detected (Not Detect); Opiate Screen Urine Not Detected (Not Detect); Phencyclidine Screen Urine Not Detected (Not Detect)
[2021-07-16 23:15] LABS: Alanine Aminotransferase 74 U/L (0-40); Albumin Level 4.4 g/dL (3.5-5.0); Alkaline Phosphatase 112 U/L (39-117); Anion Gap 11 (12-20); Aspartate Amino Transferase 170 U/L (5-37); Bilirubin Total 0.6 mg/dL (0.0-1.0); Blood Urea Nitrogen 10 mg/dL (9-16); Calcium 9.6 mg/dL (8.4-10.2); Carbon Dioxide 25 mmol/L (22-29); Chloride 106 mmol/L (96-108); Creatinine Clr Calc Pharmacy 134.8; Estimated Glomerular Filt Rate > 60; Glucose Random 128 mg/dL (60-115); Sodium 138 mmol/L (135-145); Total Protein 7.3 g/dL (6.5-8.0)
[2021-07-16] MEDS: diphenhydrAMINE HCL 25 MG TABLET 50 MG PO (23:15)
[2021-07-16 23:36] LABS: COVID-19 Test Negative (Negative); IDNOW Serial# 16C4AD1C
[2021-07-17 01:11] VITALS: BP 119/74; PULSE 85; RESP 17; TEMP 36.7; O2SAT 97
--- NOTE | 2021-07-17 06:23 | PC.NURSE ---
Patient slept through the night, no distress observed/reported, behavior non concerning, med rec completed/pending provider's approval, [facility] referral completed/confirmed/pending ETA, VSS, will continue to monitor.
--- NOTE | 2021-07-17 11:33 | PC.NURSE ---
pt seen and cleared by crisis for discharge
== END 2021-07-17 11:41 | disposition home or self-care (01) ==
PROVIDERS: Physician Assistant; Emergency Provider Emergency Medicine Emergency Medical Services
DX: G25.9 Extrapyramidal and movement disorder, unspecified (principal); F22 Delusional disorders; F25.9 Schizoaffective disorder, unspecified; F41.1 Generalized anxiety disorder; F43.0 Acute stress reaction; Z79.899 Other long term (current) drug therapy; Z20.822 Contact with and (suspected) exposure to COVID-19
CPT/HCPCS: 36415; 80053; 80307; 81003; 82077; 85025; 87635; 99284; Q0163

== ENCOUNTER 2021-07-20 21:38 | Emergency (ER) | payer BC, MEDICARE, MEDICAID, SELFPAY ==
[2021-07-20 22:00] VITALS: BP 126/54; PULSE 86; RESP 18; TEMP 36.1; O2SAT 100; BMI 28.5
== END 2021-07-21 02:12 | disposition left against medical advice (07) ==
LOC: HO.ED 07-21 01:39
PROVIDERS: Emergency Provider Emergency Medicine
DX: G24.01 Drug induced subacute dyskinesia (principal)
CPT/HCPCS: 99281

== ENCOUNTER 2021-07-23 21:27 | Emergency (ER) | payer BC, MEDICARE, MEDICAID, SELFPAY ==
[2021-07-23 21:44] VITALS: BP 161/38; PULSE 105; RESP 20; TEMP 36.6; O2SAT 99; BMI 28.8
--- NOTE | 2021-07-23 22:53 | ED.GENADULT ---
HPI - General Adult General Chief complaint: General Medical Stated complaint: MOUTH PAIN Time Seen by Provider: 07/23/21 22:53 Source: patient Mode of arrival: ambulatory Limitations: no limitations History of Present Illness HPI narrative: 26-year-old male with history of bipolar depression using Latuda for many years, over the past week patient been getting intermittent stiffness of the jaw will be pulled to 1 side. Patient do not describe spontaneous movement of the mouth or the tongue, last for few minutes then improved on its own. Otherwise patient decline feeling depressed or SI or HI, no hallucination. Related Data Home Medications Medication Instructions Recorded Confirmed lurasidone 80 mg tablet (Latuda) 80 mg PO BEDTIME 07/16/21 07/16/21 Previous Rx's Medication Instructions Recorded diphenhydramine HCl 25 mg capsule 25 mg PO TID PRN #30 cap 07/23/21 (Benadryl) Allergies Allergy/AdvReac Type Severity Reaction Status Date / Time No Known Allergies Allergy Verified 06/14/21 20:39 Review of Systems Review of Systems: All other systems are reviewed and are negative Constitutional: Reports as per HPI and Reports no additional constitutional complaints Eyes: Reports as per HPI and Reports no additional eye complaints Reports system reviewed and no additional complaints, except as documented Cardiovascular: Reports as per HPI and Reports no additional cardiovascular complaints Respiratory: Reports as per HPI and Reports no additional respiratory complaints Gastrointestinal: Reports as per HPI and Reports no additional gastrointestinal complaints Genitourinary: Reports no additional female genitourinary complaints Musculoskeletal: Reports no additional musculoskeletal complaints Skin/Breast: Reports system reviewed and no additional complaints, except as docu Psychiatric: Reports no additional psychiatric complaints Endocrine: Reports no additional endocrine complaints Hematologic/Lymphatic: Reports no additional hematologic/lymphatic complaints Allergic/Immunologic: Reports no additional allergic/immunologic complaints Reports system reviewed and no additional complaints, except as documented and Reports Abnormal speech present [facility] Past Medical History Medical History Schizo affective schizophrenia Social History Social History Household Members: None Housing: Apartment Do you presently have visiting nurse or other home services: No Patient Tobacco Use Status: Never used Tobacco Advance Directives: No Advance Directives Information Provided: No service: No Sexual orientation: Lesbian/Gale/Homosexual Physical Exam ED Vital Signs: Vital Signs - 24 hr 07/23/21 21:44 Temperature 97.8 F Pulse Rate 105 H Respiratory Rate 20 Blood Pressure 161/38 H Pulse Oximetry 99 BMI result Body Mass Index 28.8 Vital signs have been reviewed as appeared to be correct. Blood pressure elevated. Heart rate elevated. Respiration rate normal. Temperature normal. Oxygen saturation normal. Appearance: Alert. Oriented X3. No acute distress. Head: Normal external exam. Normocephalic. Atraumatic. No Duffy signs noted. No raccoon eyes noted Eyes: PERRLA. EOMI. Conjunctiva and sclera normal. Eyelids normal. ENT: TM's Normal. Pharynx normal. Uvula midline. Moist mucous membranes. No trismus noted. No drooling noted. No muffled voice noted. Neck: Normal inspection. Neck supple. FROM. No adenopathy. Thyroid Normal. No meningeal signs. No neck mass noted. CVS: Normal heart rate and rhythm. Heart sound normal. No murmurs noted. Pulses normal throughout. Respiratory: No respiratory distress. Painless inspiration. Breath sounds normal. No wheezes/rales/rhonchi noted. Chest nontender. No accessory muscle usage noted or decreased air movement noted. Abdomen: Soft and nontender. Bowel sounds normal in all 4 quadrants. No distention noted. No organomegaly noted. No visible injury noted. Back: No CVA tenderness. Full range of motion noted. Skin: Skin warm and dry. Normal skin color. Normal skin turgor. No rashes/lesions/lacerations noted. Extremities: No lower extremity edema. Extremities exhibit normal range of motion. Extremities nontender. Neuro: Oriented X 3. Cranial nerve exam: II-XII are grossly intact No motor deficit. No sensory deficit. Reflexes normal. Patient Orientation: Person, Place, Time and Situation Level of Consciousness: Awake, Appropriate and Alert Patient Behavior: Appropriate, Guarded, Cooperative and Anxious Mood Description: Constricted, Blunted and Apprehensive Affect Description: Constricted, Blunted and Apprehensive Patient Cognition Impaired: No Ability to Follow Directions: Excellent Speech Pattern: Clear, Appropriate and Spontaneous Speech Memory Description: Intact, Immediate Intact and Short Term Intact Hallucinations: None Delusions: Not Present Thought Process: Intact Thought Content: positive for Intact, positive for Logical, denies Suicidal Ideation and denies Homicidal Ideation. Judgement: Good Judgement and Insight: Intact Course Course Course Narrative: Assessment and plan. 26-year-old male with history of bipolar depression/schizophrenia on Latuda been having intermittent Jaw stiffness, tardive dyskinesia is very rare with Latuda, will prescribed Benadryl and the patient was instructed to discuss with his psychiatrist about the medication and if possible to change it on other antipsychotic medication. Discharge Plan Discharge Clinical Impression: Drug side effects Patient Disposition: Home, Self-Care Instructions: Adverse Drug Reaction (ED) Additional Instructions: Call your psychiatrist on Sunday and discuss with him the side effects that she developed from the medication and consult him switching him medicine to another antipsychotic medication. Prescriptions: New diphenhydramine HCl [Benadryl] 25 mg capsule 25 mg PO TID PRN (Reason: Abnormal facial movements) Qty: 30 0RF No Action Latuda 80 mg tablet 80 mg PO BEDTIME 0RF Referrals: Physician,None [Primary Care Provider] -
== END 2021-07-23 23:17 | disposition home or self-care (01) ==
PROVIDERS: Emergency Provider Emergency Medicine
DX: F33.1 Major depressive disorder, recurrent, moderate (principal); F20.9 Schizophrenia, unspecified; Z79.899 Other long term (current) drug therapy
CPT/HCPCS: 99282

== ENCOUNTER 2023-08-13 08:47 | Emergency (ER) | payer MEDICARE, MEDICAID, SELFPAY ==
--- NOTE | 2023-08-13 | ECG_ITS ---
Test Reason : PALPITIONS Blood Pressure : / mmHG Vent. Rate : 069 BPM Atrial Rate : 069 BPM P-R Int : 170 ms QRS Dur : 094 ms QT Int : 394 ms P-R-T Axes : 076 059 041 degrees QTc Int : 422 ms Normal sinus rhythm Normal ECG When compared with ECG of 14-JUN-2021 21:26, No significant change was found Referred By: Generic ED Physician Electronically Signed By:MILES TOBAR MD
[2023-08-13 08:53] VITALS: BP 125/74; PULSE 96; RESP 18; TEMP 36.1; O2SAT 97; BMI 26.4
--- NOTE | 2023-08-13 10:03 | PC.NURSE ---
patient comes to ED ambulatory through external triage, states he is schitzoaffective and takes medications at home, usually patient states he is sober, however over the weekend patient had a few drinks on sunday and sunday, states he knows it was a bad idea and he regrets doing it but since he did he has felt anxious and states he has felt episodes of dysarthria coming on , patient denies SI/HI denies AH/VH is alert and oriented x4 and has appropriate affect. patient states he just wants to get checked out.
[2023-08-13 10:45] LABS: MANUAL DIFF FLAG NO
[2023-08-13 10:47] LABS: Basophils Percent Auto 0.7 % (0-2); Eosinophils Percent Auto 0.5 % (0-4); Hematocrit 43.2 % (42.0-52.0); Hemoglobin 15.3 g/dl (14.0-18.0); Imm Gran Abs Auto 0.01 X10*3/uL (0.00-0.03); Imm Gran Pct Auto 0.2 % (0.0-0.4); Lymphocytes Absolute Auto 1.4 X10*3/uL (1.2-4.9); Mean Corpuscular HGB Conc 35.4 g/dl (31.0-36.0); Mean Corpuscular Hemoglobin 30.3 pg (27.0-33.0); Mean Corpuscular Volume 85.5 fL (80.0-98.0); Mean Platelet Volume 9.7 fL (9.4-12.4); Monocytes Absolute Auto 0.3 X10*3/uL (0.1-1.2); Neutrophils Absolute Auto 2.6 x10*3/uL (2.0-8.3); Neutrophils Percent Auto 60.6 % (45-73); Platelet Count 203 X10*3/uL (160-400); Red Blood Count 5.05 X10*6/uL (4.60-5.80); White Blood Count 4.3 X10*3/uL (4.8-10.8)
--- NOTE | 2023-08-13 10:49 | ED_ITS ---
HPI - General Adult General Chief complaint: General Medical Stated complaint: Anxiety attack Time Seen by Provider: 08/13/23 09:58 Source: patient Mode of arrival: ambulatory Limitations: no limitations History of Present Illness ED Provider: Luis BROWN HPI narrative: 28 year old male hx of sizhoaffective disorder, bipolary type presents w/ anxiety, paranoia and feeling uneasy X3 days. Patient reports on Sunday he got intoxicated w/ alchol and since then his symptoms have been worse. Reports med compliance. Denies drugs. No si or hi. Denies drugs, alcohol and tobacco. No medical complaints. No CP,sob, nausea, vomiting, abd pain, fevers, chills Related Data Home Medications ?Medication ?Instructions ?Recorded ?Confirmed lurasidone 80 mg tablet (Latuda) 80 mg PO BEDTIME 07/16/21 07/16/21 Previous Rx's ?Medication ?Instructions ?Recorded diphenhydramine HCl 25 mg capsule 25 mg PO TID PRN Abnormal facial 07/23/21 (Benadryl) movements #30 caps Allergies Allergy/AdvReac Type Severity Reaction Status Date / Time No Known Allergies Allergy Verified 08/13/23 08:56 Review of Systems 2 Review of Systems: Yes all other systems are reviewed and are negative PMFSH Past Medical History Attestation statement: The following information was validated with the patient. Source: old records reviewed and nursing notes reviewed Medical History Schizo affective schizophrenia Social History Social History Household Members: None Housing: Apartment Do you presently have visiting nurse or other home services: No Alcohol intake: never Patient Tobacco Use Status: Never used Tobacco Smoked in Last 30 Days: No Use of substances other than those prescribed or required for medical reasons: No Advance Directives: No Advance Directives Information Provided: Yes Do you have a plan to hurt others: No Plan service: No Sexual orientation: Lesbian/Gale/Homosexual Physical Exam ED Vital Signs: Vital Signs - 24 hr 08/13/23 08:53 Temperature 97.0 F Pulse Rate 96 Respiratory Rate 18 Blood Pressure 125/74 Pulse Oximetry 97 Oxygen Delivery Method Room Air BMI result Body Mass Index 26.4 vss Appearance: Alert.? Oriented X3.? No acute distress.? Head: Normocephalic, atraumatic, no step-offs or deformities Eyes: Pupils equal, round and reactive to light.? Neck: Normal inspection.? Neck supple.? CVS: Normal heart rate and rhythm.? Pulses normal.? Respiratory: No respiratory distress.? Breath sounds normal.? Abdomen: Soft and nontender.? Skin: Skin warm and dry.? Normal skin color.? Normal skin turgor.? Extremities: No lower extremity edema.? No calf ttp. 5/5 strength to bilateral upper and lower extremities Neuro: Oriented X 3.? No motor deficit.? No sensory deficit. CN 2-12 intact Course Reevaluation(s) Reevaluation #1: CBC with leukopenia nonspecific, I do not suspect infection. Chemistry no acute findings requiring intervention. UA clean urine toxicology negative. Ethanol negative. At this time patient to be placed into observation to allow more time to be evaluated by care team. At time observation started patient common cooperative no acute distress will continue to monitor Time: 12:28 Medical Decision Making Medical Decision Making [facility] Narrative: 1051 28-year-old male presents with anxiety, paranoia it was exacerbated by drinking on Sunday. Not suicidal or homicidal Physical exam benign History and physical exam concerning for acute episode of psychosis versus schizoaffective disorder/bipolar. Unlikely metabolic derangements. Plan medical clearance evaluation by care team Differential Diagnosis Differential Diagnoses: The differential diagnosis associated with the presentation includes History and physical exam concerning for acute episode of psychosis versus schizoaffective disorder/bipolar. Unlikely metabolic derangements. Admission/Observation Consideration of admission/observation: Escalation of care including admission/observation considered Possible Lab Data [facility] Lab Attestation statement: I reviewed the patient's lab results. 08/13/23 10:33 08/13/23 10:33 Labs: Lab Results 08/13/23 Range/Units 10:33 WBC 4.3 L (4.8-10.8) X10*3/uL RBC 5.05 (4.60-5.80) X10*6/uL Hgb 15.3 (14.0-18.0) g/dl Hct 43.2 (42.0-52.0) % MCV 85.5 (80.0-98.0) fL MCH 30.3 (27.0-33.0) pg MCHC 35.4 (31.0-36.0) g/dl RDW 13.0 (11.0-16.0) % Plt Count 203 (160-400) X10*3/uL MPV 9.7 (9.4-12.4) fL Immature Gran % (Auto) 0.2 (0.0-0.4) % Neut % (Auto) 60.6 (45-73) % Lymph % (Auto) 32.0 (20-40) % [place] % (Auto) 6.0 (2-11) % Eos % (Auto) 0.5 (0-4) % Baso % (Auto) 0.7 (0-2) % Lymph # (Auto) 1.4 (1.2-4.9) X10*3/uL [place] # (Auto) 0.3 (0.1-1.2) X10*3/uL Eos # (Auto) 0.0 (0.0-0.4) X10*3/uL Baso # (Auto) 0.0 (0.0-0.2) X10*3/uL Abs Immat Gran (auto) 0.01 (0.00-0.03) X10*3/uL Absolute Neuts (auto) 2.6 (2.0-8.3) x10*3/uL Absolute Nucleated RBC 0.000 (0.0-0.012) X10*3/uL Nucleated RBC % (auto) 0.0 (0.0-0.2) /100WBC Sodium 142 (135-145) mmol/L Potassium 4.5 (3.3-5.1) mmol/L Chloride 103 (96-108) mmol/L Carbon Dioxide 27 (22-29) mmol/L Anion Gap 17 (12-20) BUN 13 (9-16) mg/dL Creatinine 1.08 (0.5-1.4) mg/dL Estim Creat Clear Calc 109.4 Estimated GFR > 60 Random Glucose 104 (60-115) mg/dL Calcium 9.9 (8.4-10.2) mg/dL Magnesium 2.2 (1.6-2.6) mg/dL Total Bilirubin 0.5 (0.0-1.0) mg/dL AST 23 (5-37) U/L ALT 20 (0-40) U/L Alkaline Phosphatase 105 (39-117) U/L Total Protein 7.6 (6.5-8.0) g/dL Albumin 4.6 (3.5-5.0) g/dL Urine Color Yellow Urine Appearance Clear Urine pH 7.0 (5.0-9.0) Ur Specific [place] 1.020 (1.005-1.025) Urine Protein Negative (Neg-Trace) mg/dL Urine Glucose (UA) Negative (Negative) mg/dL Urine Ketones 40 (Negative) mg/dL Urine Blood Negative (Negative) Urine Nitrite Negative (Negative) Ur Leukocyte Esterase Negative (Negative) Urine Opiates Screen Not Detected (Not Detect) Ur Buprenorphine Scrn Not Detected (Not Detect) ng/mL Ur Oxycodone Screen Not Detected (Not Detect) ng/mL Urine Methadone Screen Not Detected (Not Detect) ng/mL Urine Fentanyl Screen Not Detected (Not Detect) Ur Barbiturates Screen Not Detected (Not Detect) Ur Phencyclidine Scrn Not Detected (Not Detect) Ur Amphetamines Screen Not Detected (Not Detect) U Benzodiazepines Scrn Not Detected (Not Detect) Urine Cocaine Screen Not Detected (Not Detect) U Marijuana (THC) Screen Not Detected (Not Detect) Ethyl Alcohol < 10 mg/dL Chronic Conditions Patient?s care impacted by: Other (Schizoaffective disorder, bipolar type) Critical Care Time Critical Care Time Critical Care Time: No Discharge Plan Discharge Clinical Impression: Schizoaffective disorder, bipolar type, Anxiety Patient Disposition: Still a Patient Instructions: Schizoaffective Disorder (ED), Anxiety (ED) Additional Instructions: Take your medications as prescribed. If you were prescribed antibiotics today, it is important that you take your medication to their entirety, do not skip any doses, do not finish them early. Follow-up with your primary care provider this week. Return to the emergency department with new or worsening symptoms. Such as fevers, chills, chest pain, shortness of breath, nausea, vomiting, dizziness, headache, vision changes, lethargy In case of emergency call 911 Prescriptions: No Action Latuda 80 mg tablet 80 mg PO BEDTIME diphenhydramine HCl [Benadryl] 25 mg capsule 25 mg PO TID PRN (Reason: Abnormal facial movements) Qty: 30 0RF Print Language: Somali
[2023-08-13 10:53] LABS: Appearance Urine Clear; Color Urine Yellow; Glucose Urine UA Negative (Negative); Leukocyte Esterase Urine Negative (Negative); Nitrite Urine Negative (Negative); Urine Blood Negative (Negative); Urine Ketones 40 mg/dL (Negative); Urine Protein Negative (Neg-Trace)
[2023-08-13 11:00] LABS: Amphetamine Screen Urine Not Detected (Not Detect); Barbiturates, Urine Not Detected (Not Detect); Benzodiazepines Screen Urine Not Detected (Not Detect); Buprenorphine Scr Not Detected (Not Detect); Cannabinoid Screen Urine Not Detected (Not Detect); Cocaine Screen Urine Not Detected (Not Detect); Fentanyl, urine Not Detected (Not Detect); Methadone Screen, Urine Not Detected (Not Detect); Opiate Screen Urine Not Detected (Not Detect); Oxycodone Screen Urine Not Detected (Not Detect); Phencyclidine Screen Urine Not Detected (Not Detect)
[2023-08-13 11:14] LABS: Alanine Aminotransferase 20 U/L (0-40); Albumin Level 4.6 g/dL (3.5-5.0); Alkaline Phosphatase 105 U/L (39-117); Anion Gap 17 (12-20); Aspartate Amino Transferase 23 U/L (5-37); Bilirubin Total 0.5 mg/dL (0.0-1.0); Blood Urea Nitrogen 13 mg/dL (9-16); Calcium 9.9 mg/dL (8.4-10.2); Carbon Dioxide 27 mmol/L (22-29); Chloride 103 mmol/L (96-108); Creatinine Clr Calc Pharmacy 109.4; Estimated Glomerular Filt Rate > 60; Ethanol < 10 mg/dL; Glucose Random 104 mg/dL (60-115); Magnesium 2.2 mg/dL (1.6-2.6); Potassium 4.5 mmol/L (3.3-5.1); Sodium 142 mmol/L (135-145); Total Protein 7.6 g/dL (6.5-8.0)
--- NOTE | 2023-08-13 13:10 | PC.NURSE ---
patient resting comfortably on stretcher at this time, respirations even and unlabored, offering no complaints to this RN. all safety maintained at this time
[2023-08-13 15:00] VITALS: BP 125/74; PULSE 97; RESP 18; TEMP 36.1; O2SAT 97
== END 2023-08-13 15:01 | disposition still patient (30) ==
PROVIDERS: Physician Assistant; Emergency Provider Emergency Medicine
DX: F25.0 Schizoaffective disorder, bipolar type (principal); F41.1 Generalized anxiety disorder; F43.0 Acute stress reaction; R00.2 Palpitations; Z79.899 Other long term (current) drug therapy; Z51.81 Encounter for therapeutic drug level monitoring; Z03.89 Encounter for observation for other suspected diseases and conditions ruled out
CPT/HCPCS: 36415; 80053; 80307; 81003; 83735; 85025; 93005; 99284; S9485

== ENCOUNTER → 2023-08-13 10:28 | Outpatient (BNV) | payer MEDICARE, MEDICAID, SELFPAY | PROVIDERS: Emergency Provider Emergency Medicine; Visit Provider Internal Medicine Cardiovascular Disease | DX: R00.2 Palpitations (principal) | CPT/HCPCS: 93010 ==